=== PATIENT | male | born 1965 | race Two or more races ===

== ENCOUNTER 2017-01-03 12:34 | Inpatient (IN) | payer OTHER ==
[2017-01-03 17:56] VITALS: BMI 36.6
--- NOTE | 2017-01-03 19:41 | HP ---
CIWA Score - CIWA Score Nausea/Vomitin-Mild Nausea/No Vomiting Muscle Tremors: 5 Anxiety: 4-Mod. Anxious/Guarded Agitation: 4-Moderately Restless Paroxysmal Sweats: 2 Orientation: 0-Oriented Tacttile Disturbances: 0-None Auditory Disturbances: 0-None Visual Disturbances: 0-None Headache: 0-None Present CIWA-Ar Total Score: 16 Admission ROS BHS - HPI Chief Complaint: WITHDRAWAL SX Allergies/Adverse Reactions: Allergies Allergy/AdvReac Type Severity Reaction Status Date / Time No Known Allergies Allergy Verified 01/03/17 19:03 History of Present Illness: 51 YEARS OLD MALE WITH LONG HISTORY OF ALCOHOL COCAINE MARIJUAN DEPENDENCE DENIES MEDICAL ISSUE HAS ANXIETY IS ADMITTED TO DETOX LONGEST SOBRIETY 14 MONTHS Exam Limitations: No Limitations - Ebola screening Have you traveled outside of the country in the last 21 days: No Have you had contact with anyone from an Ebola affected area: No Have you been sick,other than usual withdrawal symptoms: No Do you have a fever: No - Review of Systems Constitutional: Chills, Changes in sleep, Weight Stable EENT: reports: Cataracts (RIGHT EYE), Hearing Loss (RIGHT EAR), Other Respiratory: reports: SOB with Exertion Cardiac: reports: No Symptoms Reported GI: reports: Diarrhea, Nausea, Poor Fluid Intake, Abdominal cramping : reports: No Symptoms Reported Musculoskeletal: reports: No Symptoms Reported Integumentary: reports: No Symptoms Reported Neuro: reports: Tremors Endocrine: reports: No Symptoms Reported Hematology: reports: No Symptoms Reported Psychiatric: reports: Judgement Intact, Orientated x3, Anxious Other Systems: Reviewed and Negative Patient History - Patient Medical History Hx Anemia: No Hx Asthma: No Hx Chronic Obstructive Pulmonary Disease (COPD): No Hx Cancer: No Hx Cardiac Disorders: No Hx Congestive Heart Failure: No Hx Hypertension: Yes Hx Hypercholesterolemia: No Hx Pacemaker: No HX Cerebrovascular Accident: No Hx Seizures: No Hx Dementia: No Hx Diabetes: No Hx Gastrointestinal Disorders: No Hx Liver Disease: No Hx Genitourinary Disorders: No Hx Sexually Transmitted Disorders: No Hx Renal Disease (ESRD): No Hx Thyroid Disease: No Hx Human Immunodeficiency Virus (HIV): No (08/04 last) Hx Hepatitis C: No Hx Depression: Yes Hx Suicide Attempt: No Hx Bipolar Disorder: No Hx Schizophrenia: No - Patient Surgical History Past Surgical History: No Hx Neurologic Surgery: No Hx Cataract Extraction: No Hx Cardiac Surgery: No Hx Lung Surgery: No Hx Breast Surgery: No Hx Breast Biopsy: No Hx Abdominal Surgery: No Hx Appendectomy: No Hx Cholecystectomy: No Hx Genitourinary Surgery: No Hx Orthopedic Surgery: No - PPD History Previous Implant?: Yes (+ ppd HISTORY) Documented Results: Positive w/o proof Implanted On Prior R Admission?: No PPD to be Administered?: No - Smoking Cessation Smoking history: Never smoked Have you smoked in the past 12 months: No Cigars Per Day: 0 Hx Chewing Tobacco Use: No Initiated information on smoking cessation: No - Substance & Tx. History Hx Alcohol Use: Yes Hx Substance Use: Yes Substance Use Type: Alcohol, Cocaine, Marijuana Hx Substance Use Treatment: Yes - Substances Abused Alcohol Route: Oral Frequency: Daily Amount used: 6 beers 1/2 pint vodka Age of first use: 13 Date of Last Use: 01/03/17 Crack Route: Smoking Frequency: 3-6 times per week Amount used: $50 Age of first use: 20 Date of Last Use: 12/31/16 Marijuana/Hashish Route: Smoking Frequency: Daily Amount used: $10 Age of first use: 13 Date of Last Use: 12/31/16 Family Disease History - Family Disease History Family Disease History: Respiratory: Mother (alcohol,asthma,), Other: Father (alcohol,), Mother, Brother (alcohol), Sister (alcohol) Admission Physical Exam S - Vital Signs Vital Signs: Vital Signs - 24 hr 01/03/17 17:55 Temperature 95.8 F L Pulse Rate 81 Respiratory 18 Rate Blood Pressure 159/103 - Physical General Appearance: Yes: Appropriately Dressed, Mild Distress, Obese, Tremorous , Irritable, Sweating, Anxious HEENTM: Yes: Hearing grossly Normal, Normal ENT Inspection, Normocephalic, Normal Voice Respiratory: Yes: Chest Non-Tender, Lungs Clear, Normal Breath Sounds, No Respiratory Distress, No Accessory Muscle Use Neck: Yes: Supple, Trachea in good position Breast: Yes: Breasts Symetrical Cardiology: Yes: Regular Rhythm, Regular Rate, S1, S2 Abdominal: Yes: Non Tender, Soft Genitourinary: Yes: Within Normal Limits Back: Yes: Normal Inspection Musculoskeletal: Yes: full range of Motion, Gait Steady Neurological: Yes: Fully Oriented, Alert, Motor Strength 5/5, Normal Response, Depressed Affect Integumentary: Yes: Warm Lymphatic: Yes: Within Normal Limits - Diagnostic (1) 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: Yes Status: Chronic (2) Alcohol dependence with uncomplicated withdrawal Current Visit: Yes Status: Acute (3) S/P cataract extraction and insertion of intraocular lens Current Visit: Yes Status: Resolved Qualifiers: Laterality: right Qualified Code(s): Z98.41 - Cataract extraction status, right eye; Z96.1 - Presence of intraocular lens (4) Hypertension Current Visit: Yes Status: Acute Qualifiers: Hypertension type: essential hypertension Qualified Code(s): I10 - Essential (primary) hypertension Comment: NO SALT DIET + AMLODIPINE 5 MG BID + CLONIDINE 0.1 MG Q6H PRN (5) Cocaine dependence, uncomplicated Current Visit: Yes Status: Chronic (6) Cannabis dependence, uncomplicated Current Visit: Yes Status: Chronic (7) Depression (emotion) Current Visit: Yes Status: Suspected Qualifiers: Depression Type: dysthymia Qualified Code(s): F34.1 - Dysthymic disorder (8) Positive PPD, treated Current Visit: Yes Status: Resolved Comment: CHEST X RAY PENDING Cleared for Admission [facility] - Detox or Rehab [facility] Level of Care: Medically Managed Detox Regimen/Protocol: Librium [facility] Breath Alcohol Content Breath Alcohol Content: 0 Urine Drug Screen - Results Drug Screen Negative: No Urine Drug Screen Results: THC-Marijuana, DINAH-Cocaine
[2017-01-03] MEDS ORDERED: MAGNESIUM HYDROX 2400MG/30ML ORAL SUSPENSION 30 ML CUP PO PRN (19:58)
[2017-01-03] MEDS ORDERED: IBUPROFEN 400 MG TABLET (FP) PO PRN (19:58)
[2017-01-03] MEDS ORDERED: LOPERAMIDE HCL 2 MG CAPSULE PO PRN (19:58)
[2017-01-03] MEDS ORDERED: P-EPHED 60MG/TRIPROLIDI 2.5MG TABLET PO PRN (19:58)
[2017-01-03] MEDS ORDERED: guaiFENesin/D-METHORPHAN HB 10 ML UNIT-DOSE CUPS PO PRN (19:58)
[2017-01-03] MEDS ORDERED: ACETAMINOPHEN 325 MG TABLET (FP) PO PRN (19:58)
[2017-01-03] MEDS ORDERED: MENTHOL/PHENOL 1 EACH UD MM PRN (19:58)
[2017-01-03] MEDS ORDERED: diphenhydrAMINE HCL 50 MG CAPSULE PO PRN (19:58)
[2017-01-03] MEDS ORDERED: MAGNESIUM CITRATE 300 ML BOTTLE PO PRN (19:58)
[2017-01-03] MEDS ORDERED: MAG HYDROX/AL HYDROX/SIMETH 30 ML UNIT-DOSE CUP PO PRN (19:58)
[2017-01-03] MEDS ORDERED: hydrOXYzine PAMOATE 50 MG CAPSULE (FP) PO PRN (19:58)
[2017-01-03] MEDS ORDERED: chlordiazePOXIDE HCL 25 MG CAPSULE PO PRN (19:58)
[2017-01-03] MEDS ORDERED: cloNIDine HCL 0.1 MG TABLET PO PRN (20:05)
[2017-01-03 21:29] LABS: URINE APPEARANCE CLEAR; URINE BILIRUBIN NEGATIVE (NEGATIVE); URINE COLOR YELLOW; URINE GLUCOSE (UA) NEGATIVE (NEGATIVE); URINE KETONE NEGATIVE (NEGATIVE); URINE LEUK ESTERASE NEGATIVE (NEGATIVE); URINE NITRITE NEGATIVE (NEGATIVE); URINE UROBILINOGEN 2.0 E.U/dl E.U./dl (0.2-1.0)
[2017-01-03] MEDS: THIAMINE HCL 100 MG TABLET (FP) PO SCH (22:37)
[2017-01-03] MEDS: chlordiazePOXIDE HCL 25 MG CAPSULE PO SCH (22:37)
[2017-01-03] MEDS: amLODIPine BESYLATE 5 MG TABLET (FP) PO SCH (22:37)
[2017-01-03 22:52] LABS: URINE BLOOD 2+ (NEGATIVE)
[2017-01-03 22:54] LABS: URINE BACTERIA RARE /hpf (NONE SEEN); URINE HYALINE CAST 5 /lpf; URINE MUCUS MANY; URINE PROTEIN 2+ (NEGATIVE); URINE RBC 1 /hpf (0-3); URINE WBC 1 /hpf (3-5)
[2017-01-03 22:55] LABS: CALCIUM OXALATE CRYSTALS FEW /hpf (NONE SEEN)
[2017-01-04] MEDS: chlordiazePOXIDE HCL 25 MG CAPSULE PO SCH ×4 (06:01→22:17)
[2017-01-04 10:02] LABS: GLUCOSE,RANDOM 108 mg/dL (74-106); SGOT/AST 18 U/L (15-37); SGPT/ALT 37 U/L (12-78)
[2017-01-04 10:04] LABS: MCH 27.3 pg (25.7-33.7); MEAN CELL VOLUME 85.3 fl (80-96); MEAN PLT VOLUME 10.4 fl (7.5-11.1); PLATELET COUNT 191 K/MM3 (134-434); RDW 14.3 % (11.9-15.9)
[2017-01-04 10:07] LABS: ALBUMIN 4.3 g/dl (3.4-5.0); ALK PHOS 65 U/L (45-117); ANION GAP 8 (8-16); BILIRUBIN,TOTAL 0.8 mg/dL (0.2-1.0); CALCIUM 9.2 mg/dL (8.5-10.1); CO2 27 mmol/L (21-32); TOT PROT 7.2 g/dl (6.4-8.2)
--- NOTE | 2017-01-04 10:19 | PN ---
S CIWA - CIWA Score Nausea/Vomitin Muscle Tremors: 3 Anxiety: 3 Agitation: 3 Paroxysmal Sweats: 1-Minimal Palms Moist Orientation: 0-Oriented Tacttile Disturbances: 1-Very Mild Itch/Numbness Auditory Disturbances: 1-Very Mild Visual Disturbances: 1-Very Mild Sensitivity Headache: 2-Mild CIWA-Ar Total Score: 18 S Progress Note (SOAP) Subjective: ALERT,IRRITABLE,ANXIOUS,INTERRUPTED SLEEP,TREMOR Objective: 01/04/17 10:17 Vital Signs Temperature 96.8 F L 01/04/17 09:50 Pulse Rate 65 01/04/17 09:50 Respiratory Rate 18 01/04/17 09:50 Blood Pressure 125/73 01/04/17 09:50 O2 Sat by Pulse Oximetry (%) EKG NSR,NORMAL ECG Laboratory Last Values WBC 6.0 K/mm3 (4.0-10.0) 01/04/17 06:00 RBC 5.34 M/mm3 (4.00-5.60) 01/04/17 06:00 Hgb 14.6 GM/dL (11.7-16.9) 01/04/17 06:00 Hct 45.6 % (35.4-49) 01/04/17 06:00 MCV 85.3 fl (80-96) 01/04/17 06:00 MCHC 32.0 g/dl (32.0-35.9) 01/04/17 06:00 RDW 14.3 % (11.9-15.9) 01/04/17 06:00 Plt Count 191 K/MM3 (134-434) 01/04/17 06:00 MPV 10.4 fl (7.5-11.1) 01/04/17 06:00 Sodium 138 mmol/L (136-145) 01/04/17 06:00 Potassium 3.7 mmol/L (3.5-5.1) 01/04/17 06:00 Chloride 103 mmol/L (98-107) 01/04/17 06:00 Carbon Dioxide 27 mmol/L (21-32) 01/04/17 06:00 Anion Gap 8 (8-16) 01/04/17 06:00 BUN 14 mg/dL (7-18) D 01/04/17 06:00 Creatinine 1.0 mg/dL (0.7-1.3) 01/04/17 06:00 Creat Clearance w eGFR > 60 (>60) 01/04/17 06:00 Random Glucose 108 mg/dL (74-106) H 01/04/17 06:00 Calcium 9.2 mg/dL (8.5-10.1) 01/04/17 06:00 Total Bilirubin 0.8 mg/dL (0.2-1.0) D 01/04/17 06:00 AST 18 U/L (15-37) D 01/04/17 06:00 ALT 37 U/L (12-78) D 01/04/17 06:00 Alkaline Phosphatase 65 U/L (45-117) 01/04/17 06:00 Total Protein 7.2 g/dl (6.4-8.2) 01/04/17 06:00 Albumin 4.3 g/dl (3.4-5.0) D 01/04/17 06:00 Urine Color Yellow 01/03/17 21:25 Urine Appearance Clear 01/03/17 21:25 Urine pH 5.0 (5.0-8.0) 01/03/17 21:25 Ur Specific [place] 1.018 (1.001-1.035) 01/03/17 21:25 Urine Protein 2+ (NEGATIVE) H 01/03/17 21:25 Urine Glucose (UA) Negative (NEGATIVE) 01/03/17 21:25 Urine Ketones Negative (NEGATIVE) 01/03/17 21:25 Urine Blood 2+ (NEGATIVE) H 01/03/17 21:25 Urine Nitrite Negative (NEGATIVE) 01/03/17 21:25 Urine Bilirubin Negative (NEGATIVE) 01/03/17 21:25 Urine Urobilinogen 2.0 e.u/dl E.U./dl (0.2-1.0) 01/03/17 21:25 Ur Leukocyte Esterase Negative (NEGATIVE) 01/03/17 21:25 Urine RBC 1 /hpf (0-3) 01/03/17 21:25 Urine WBC 1 /hpf (3-5) 01/03/17 21:25 Ur Epithelial Cells Rare /hpf (FEW) 01/03/17 21:25 Calcium Oxalate Crystal Few /hpf (NONE SEEN) 01/03/17 21:25 Urine Bacteria Rare /hpf (NONE SEEN) 01/03/17 21:25 Hyaline Casts 5 /lpf 01/03/17 21:25 Urine Mucus Many 01/03/17 21:25 Assessment: 01/04/17 10:18 WITHDRAWAL SYMPTOM Plan: CONTINUE DETOX
[2017-01-04 10:27] LABS: HIV 1 & 2 AB NEGATIVE; HIV 1 AGp24 NEGATIVE
[2017-01-04] MEDS: PRENATAL VITAMINS W/ FOLIC ACID TABLET (FP) PO SCH (10:34)
[2017-01-04] MEDS: amLODIPine BESYLATE 5 MG TABLET (FP) PO SCH ×2 (10:34→22:17)
--- NOTE | 2017-01-04 11:18 | CONSULT ---
[facility] Psychiatric Consult - Data Date of interview: 01/04/17 Admission source: [facility] Identifying data: This is 51 years old male with psychiatric hospitalization history on about 10 years ago, intoxicated with: Alcohol, Cocaine and Cannabis Substance Abuse History: - Smoking Cessation. Smoking history: Never smoked. Have you smoked in the past 12 months: No. Cigars Per Day: 0. Hx Chewing Tobacco Use: No. Initiated information on smoking cessation: No. - Substance & Tx. History. Hx Alcohol Use: Yes. Hx Substance Use: Yes. Substance Use Type : Alcohol, Cocaine, Marijuana. Hx Substance Use Treatment: Yes. - Substances Abused. Alcohol. Route: Oral. Frequency: Daily. Amount used: 6 beers 1/2 pint vodka. Age of first use: 13. Date of Last Use: 01/03/17. Crack. Route: Smoking. Frequency: 3-6 times per week. Amount used: $50. Age of first use: 20. Date of Last Use: 12/31/16. Marijuana/Hashish. Route: Smoking. Frequency: Daily. Amount used: $10. Age of first use: 13. Date of Last Use: 12/31/16 Medical History: HTN, Right ear deafness, Weight loss, Syncope, Obesity Psychiatric History: Nelson reports history of depression and anxiety, reports taking prior mtop admission: No medications Physical/Sexual Abuse/Trauma History: Denies Additional Comment: Observation. Detox Unit Care Protocol Mental Status Exam - Mental Status Exam Alert and Oriented to: Person Cognitive Function: Fair Patient Appearance: Unkempt Mood: Sad Affect: Flat Patient Behavior: Sedated Speech Pattern: Appropriate Voice Loudness: Mildly Soft/Quiet Thought Process: Goal Oriented Thought Disorder: Being Controlled Hallucinations: Denies Suicidal Ideation: Denies Homicidal Ideation: Denies Insight/Judgement: Fair Sleep: Difficulty falling asleep Appetite: Weight gain Muscle strength/Tone: Mild Hypotonicity Gait/Station: Shuffling Additional Comments: Observation. Detox Unit Care Protocol Psychiatric Findings - Problem List ([place] 1, 2,3) (1) Alcohol dependence with uncomplicated withdrawal Current Visit: Yes Status: Acute (2) Cannabis dependence, uncomplicated Current Visit: Yes Status: Chronic (3) Cocaine dependence, uncomplicated Current Visit: Yes Status: Chronic (4) Alcohol dependence Current Visit: No Status: Acute (5) Cannabis dependence Current Visit: No Status: Acute (6) Cocaine dependence Current Visit: No Status: Acute (7) Drug-induced mood disorder Current Visit: Yes Status: Acute - Initial Treatment Plan Initial Treatment Plan: Observation. Detox Unit Care Protocol
--- NOTE | 2017-01-04 15:29 | EKG ---
Test Reason : Blood Pressure : / mmHG Vent. Rate : 073 BPM Atrial Rate : 073 BPM P-R Int : 136 ms QRS Dur : 084 ms QT Int : 412 ms P-R-T Axes : 049 012 004 degrees QTc Int : 453 ms NORMAL SINUS RHYTHM NORMAL ECG NO PREVIOUS ECGS AVAILABLE Confirmed by IFEOMA MCKENNA MD ([id number]) on 01/04/2017 3:29:01 PM Referred By: Confirmed By:IFEOMA MCKENNA MD
[2017-01-04] MEDS: THIAMINE HCL 100 MG TABLET (FP) PO SCH (22:16)
[2017-01-05] MEDS: chlordiazePOXIDE HCL 25 MG CAPSULE PO SCH ×3 (05:29→17:37)
[2017-01-05] MEDS: PRENATAL VITAMINS W/ FOLIC ACID TABLET (FP) PO SCH (10:42)
[2017-01-05] MEDS: amLODIPine BESYLATE 5 MG TABLET (FP) PO SCH ×2 (10:42→22:30)
--- NOTE | 2017-01-05 15:19 | PN ---
[facility] CIWA - CIWA Score Nausea/Vomitin-No Nausea/No Vomiting Muscle Tremors: 3 Anxiety: 2 Agitation: 3 Paroxysmal Sweats: 3 Orientation: 0-Oriented Tacttile Disturbances: 0-None Auditory Disturbances: 2-Mild Harshness/Frighten Visual Disturbances: 2-Mild Sensitivity Headache: 0-None Present CIWA-Ar Total Score: 15 S Progress Note (SOAP) Subjective: Interrupted Sleep, Chills, Tremors, Sweating. Objective: PT. A & O X 3, OBSERVED AMBULATING ON UNIT. 01/05/17 15:17 Vital Signs Temperature 98.1 F 01/05/17 14:24 Pulse Rate 93 H 01/05/17 14:24 Respiratory Rate 20 01/05/17 14:24 Blood Pressure 136/73 01/05/17 14:24 O2 Sat by Pulse Oximetry (%) Laboratory Last Values WBC 6.0 K/mm3 (4.0-10.0) 01/04/17 06:00 RBC 5.34 M/mm3 (4.00-5.60) 01/04/17 06:00 Hgb 14.6 GM/dL (11.7-16.9) 01/04/17 06:00 Hct 45.6 % (35.4-49) 01/04/17 06:00 MCV 85.3 fl (80-96) 01/04/17 06:00 MCHC 32.0 g/dl (32.0-35.9) 01/04/17 06:00 RDW 14.3 % (11.9-15.9) 01/04/17 06:00 Plt Count 191 K/MM3 (134-434) 01/04/17 06:00 MPV 10.4 fl (7.5-11.1) 01/04/17 06:00 Sodium 138 mmol/L (136-145) 01/04/17 06:00 Potassium 3.7 mmol/L (3.5-5.1) 01/04/17 06:00 Chloride 103 mmol/L (98-107) 01/04/17 06:00 Carbon Dioxide 27 mmol/L (21-32) 01/04/17 06:00 Anion Gap 8 (8-16) 01/04/17 06:00 BUN 14 mg/dL (7-18) D 01/04/17 06:00 Creatinine 1.0 mg/dL (0.7-1.3) 01/04/17 06:00 Creat Clearance w eGFR > 60 (>60) 01/04/17 06:00 Random Glucose 108 mg/dL (74-106) H 01/04/17 06:00 Calcium 9.2 mg/dL (8.5-10.1) 01/04/17 06:00 Total Bilirubin 0.8 mg/dL (0.2-1.0) D 01/04/17 06:00 AST 18 U/L (15-37) D 01/04/17 06:00 ALT 37 U/L (12-78) D 01/04/17 06:00 Alkaline Phosphatase 65 U/L (45-117) 01/04/17 06:00 Total Protein 7.2 g/dl (6.4-8.2) 01/04/17 06:00 Albumin 4.3 g/dl (3.4-5.0) D 01/04/17 06:00 Urine Color Yellow 01/03/17 21:25 Urine Appearance Clear 01/03/17 21:25 Urine pH 5.0 (5.0-8.0) 01/03/17 21:25 Ur Specific [place] 1.018 (1.001-1.035) 01/03/17 21:25 Urine Protein 2+ (NEGATIVE) H 01/03/17 21:25 Urine Glucose (UA) Negative (NEGATIVE) 01/03/17 21:25 Urine Ketones Negative (NEGATIVE) 01/03/17 21:25 Urine Blood 2+ (NEGATIVE) H 01/03/17 21:25 Urine Nitrite Negative (NEGATIVE) 01/03/17 21:25 Urine Bilirubin Negative (NEGATIVE) 01/03/17 21:25 Urine Urobilinogen 2.0 e.u/dl E.U./dl (0.2-1.0) 01/03/17 21:25 Ur Leukocyte Esterase Negative (NEGATIVE) 01/03/17 21:25 Urine RBC 1 /hpf (0-3) 01/03/17 21:25 Urine WBC 1 /hpf (3-5) 01/03/17 21:25 Ur Epithelial Cells Rare /hpf (FEW) 01/03/17 21:25 Calcium Oxalate Crystal Few /hpf (NONE SEEN) 01/03/17 21:25 Urine Bacteria Rare /hpf (NONE SEEN) 01/03/17 21:25 Hyaline Casts 5 /lpf 01/03/17 21:25 Urine Mucus Many 01/03/17 21:25 RPR Titer Nonreactive (NONREACTIVE) 01/04/17 06:00 Hepatitis C Antibody <0.1 s/co ratio (0.0-0.9) 01/03/17 06:00 HIV 1&2 Antibody Screen Negative 01/03/17 06:00 HIV P24 Antigen Negative 01/03/17 06:00 LABS NOTED. Assessment: 01/05/17 15:18 WITHDRAWAL SYMPTOMS. Plan: CONTINUE DETOX.
[2017-01-05] MEDS: THIAMINE HCL 100 MG TABLET (FP) PO SCH (22:30)
[2017-01-05] MEDS: chlordiazePOXIDE 5 MG CAPSULE PO SCH (22:30)
[2017-01-06] MEDS: chlordiazePOXIDE 5 MG CAPSULE PO SCH ×3 (05:45→17:58)
[2017-01-06] MEDS: amLODIPine BESYLATE 5 MG TABLET (FP) PO SCH ×2 (10:32→23:07)
[2017-01-06] MEDS: PRENATAL VITAMINS W/ FOLIC ACID TABLET (FP) PO SCH (10:32)
--- NOTE | 2017-01-06 14:45 | PN ---
S Progress Note (SOAP) Subjective: Interrupted sleep only symptoms reported by pt. today. Objective: PT. A & O X 3. 01/06/17 14:44 Vital Signs Temperature 96 F L 01/06/17 09:40 Pulse Rate 72 01/06/17 09:40 Respiratory Rate 18 01/06/17 09:40 Blood Pressure 132/85 01/06/17 09:40 O2 Sat by Pulse Oximetry (%) Laboratory Last Values WBC 6.0 K/mm3 (4.0-10.0) 01/04/17 06:00 RBC 5.34 M/mm3 (4.00-5.60) 01/04/17 06:00 Hgb 14.6 GM/dL (11.7-16.9) 01/04/17 06:00 Hct 45.6 % (35.4-49) 01/04/17 06:00 MCV 85.3 fl (80-96) 01/04/17 06:00 MCHC 32.0 g/dl (32.0-35.9) 01/04/17 06:00 RDW 14.3 % (11.9-15.9) 01/04/17 06:00 Plt Count 191 K/MM3 (134-434) 01/04/17 06:00 MPV 10.4 fl (7.5-11.1) 01/04/17 06:00 Sodium 138 mmol/L (136-145) 01/04/17 06:00 Potassium 3.7 mmol/L (3.5-5.1) 01/04/17 06:00 Chloride 103 mmol/L (98-107) 01/04/17 06:00 Carbon Dioxide 27 mmol/L (21-32) 01/04/17 06:00 Anion Gap 8 (8-16) 01/04/17 06:00 BUN 14 mg/dL (7-18) D 01/04/17 06:00 Creatinine 1.0 mg/dL (0.7-1.3) 01/04/17 06:00 Creat Clearance w eGFR > 60 (>60) 01/04/17 06:00 Random Glucose 108 mg/dL (74-106) H 01/04/17 06:00 Calcium 9.2 mg/dL (8.5-10.1) 01/04/17 06:00 Total Bilirubin 0.8 mg/dL (0.2-1.0) D 01/04/17 06:00 AST 18 U/L (15-37) D 01/04/17 06:00 ALT 37 U/L (12-78) D 01/04/17 06:00 Alkaline Phosphatase 65 U/L (45-117) 01/04/17 06:00 Total Protein 7.2 g/dl (6.4-8.2) 01/04/17 06:00 Albumin 4.3 g/dl (3.4-5.0) D 01/04/17 06:00 Urine Color Yellow 01/03/17 21:25 Urine Appearance Clear 01/03/17 21:25 Urine pH 5.0 (5.0-8.0) 01/03/17 21:25 Ur Specific [place] 1.018 (1.001-1.035) 01/03/17 21:25 Urine Protein 2+ (NEGATIVE) H 01/03/17 21:25 Urine Glucose (UA) Negative (NEGATIVE) 01/03/17 21:25 Urine Ketones Negative (NEGATIVE) 01/03/17 21:25 Urine Blood 2+ (NEGATIVE) H 01/03/17 21:25 Urine Nitrite Negative (NEGATIVE) 01/03/17 21:25 Urine Bilirubin Negative (NEGATIVE) 01/03/17 21:25 Urine Urobilinogen 2.0 e.u/dl E.U./dl (0.2-1.0) 01/03/17 21:25 Ur Leukocyte Esterase Negative (NEGATIVE) 01/03/17 21:25 Urine RBC 1 /hpf (0-3) 01/03/17 21:25 Urine WBC 1 /hpf (3-5) 01/03/17 21:25 Ur Epithelial Cells Rare /hpf (FEW) 01/03/17 21:25 Calcium Oxalate Crystal Few /hpf (NONE SEEN) 01/03/17 21:25 Urine Bacteria Rare /hpf (NONE SEEN) 01/03/17 21:25 Hyaline Casts 5 /lpf 01/03/17 21:25 Urine Mucus Many 01/03/17 21:25 RPR Titer Nonreactive (NONREACTIVE) 01/04/17 06:00 Hepatitis C Antibody <0.1 s/co ratio (0.0-0.9) 01/03/17 06:00 HIV 1&2 Antibody Screen Negative 01/03/17 06:00 HIV P24 Antigen Negative 01/03/17 06:00 LABS NOTED. Assessment: 01/06/17 14:45 WITHDRAWAL SYMPTOMS. Plan: CONTINUE DETOX. ADVISED PATIENT TO FOLLOW-UP WITH HOTEL CLERK / REHAB MEDICAL PROVIDER AFTER DISCHARGE FROM DETOX FOR GENERAL MEDICAL ASSESSMENT AND FOR ABNORMAL ADMISSION LAB VALUES.
[2017-01-06 21:50] VITALS: TEMP 96.1
[2017-01-06] MEDS: THIAMINE HCL 100 MG TABLET (FP) PO SCH (23:07)
[2017-01-06] MEDS: chlordiazePOXIDE HCL 10 MG CAPSULE PO SCH (23:08)
[2017-01-07] MEDS: chlordiazePOXIDE HCL 10 MG CAPSULE PO SCH (05:38)
[2017-01-07 06:32] VITALS: BP 137/86; PULSE 65
--- NOTE | 2017-01-07 10:59 | DS ---
[facility] Detox Discharge Summary Admission Date: 01/03/17 Discharge Date: 01/07/17 - History Present History: Alcohol Dependence, Cannabis Dependence, Cocaine Dependence Additional Comments: Hypertension +PPD - Physical Exam Results Vital Signs: Vital Signs Temperature 96.1 F L 01/07/17 06:31 Pulse Rate 65 01/07/17 06:31 Respiratory Rate 18 01/07/17 06:31 Blood Pressure 137/86 01/07/17 06:31 O2 Sat by Pulse Oximetry (%) Laboratory Tests 01/03/17 01/03/17 01/03/17 06:00 06:00 21:25 WBC RBC Hgb Hct MCV MCHC RDW Plt Count MPV Sodium Potassium Chloride Carbon Dioxide Anion Gap BUN Creatinine Creat Clearance w eGFR Random Glucose Calcium Total Bilirubin AST ALT Alkaline Phosphatase Total Protein Albumin Urine Color Yellow Urine Appearance Clear Urine pH 5.0 Ur Specific [place] 1.018 Urine Protein 2+ H Urine Glucose (UA) Negative Urine Ketones Negative Urine Blood 2+ H Urine Nitrite Negative Urine Bilirubin Negative Urine Urobilinogen 2.0 e.u/dl Ur Leukocyte Esterase Negative Urine RBC 1 Urine WBC 1 Ur Epithelial Cells Rare Calcium Oxalate Crystal Few Urine Bacteria Rare Hyaline Casts 5 Urine Mucus Many RPR Titer Hepatitis C Antibody <0.1 HIV 1&2 Antibody Screen Negative HIV P24 Antigen Negative 01/04/17 01/04/17 01/04/17 06:00 06:00 06:00 WBC 6.0 RBC 5.34 Hgb 14.6 Hct 45.6 MCV 85.3 MCHC 32.0 RDW 14.3 Plt Count 191 MPV 10.4 Sodium 138 Potassium 3.7 Chloride 103 Carbon Dioxide 27 Anion Gap 8 BUN 14 D Creatinine 1.0 Creat Clearance w eGFR > 60 Random Glucose 108 H Calcium 9.2 Total Bilirubin 0.8 D AST 18 D ALT 37 D Alkaline Phosphatase 65 Total Protein 7.2 Albumin 4.3 D Urine Color Urine Appearance Urine pH Ur Specific [place] Urine Protein Urine Glucose (UA) Urine Ketones Urine Blood Urine Nitrite Urine Bilirubin Urine Urobilinogen Ur Leukocyte Esterase Urine RBC Urine WBC Ur Epithelial Cells Calcium Oxalate Crystal Urine Bacteria Hyaline Casts Urine Mucus RPR Titer Nonreactive Hepatitis C Antibody HIV 1&2 Antibody Screen HIV P24 Antigen Vitals and Labs Noted - Treatment Hospital Course: Detox Protocol Followed, Detoxed Safely, Responded well, Discharged Condition Good Patient has Accepted a Rehab Referral to: Outpatient [facility] - Medication Discharge Medications: Ambulatory Orders NK [No Known Home Medication] 11/11/14 - Diagnosis (1) Alcohol dependence with uncomplicated withdrawal Status: Acute (2) Cannabis dependence Status: Acute (3) Cocaine dependence Status: Acute (4) Drug-induced mood disorder Status: Acute (5) Hypertension Status: Acute Qualifiers: Hypertension type: essential hypertension Qualified Code(s): I10 - Essential (primary) hypertension (6) Cannabis dependence, uncomplicated Status: Chronic (7) Cocaine dependence, uncomplicated Status: Chronic - AMA Did Patient Leave Against Medical Advice: No
== END 2017-01-07 09:34 | disposition home or self-care (01) | DRG 774 ==
LOC: YASAS 12:34 → Y3N 19:16
PROVIDERS: ADMIT Internal Medicine; ATTEND Internal Medicine
PROC: HZ2ZZZZ Detoxification Services for Substance Abuse Treatment (ICD-10-PCS; principal; 2017-01-03)
DX: F10.230 Alcohol dependence with withdrawal, uncomplicated (principal); F14.20 Cocaine dependence, uncomplicated; F12.20 Cannabis dependence, uncomplicated; F19.24 Other psychoactive substance dependence with psychoactive substance-induced mood disorder; F34.1 Dysthymic disorder; I10 Essential (primary) hypertension; H91.91 Unspecified hearing loss, right ear; R76.11 Nonspecific reaction to tuberculin skin test without active tuberculosis; E66.9 Obesity, unspecified; Z68.36 Body mass index [BMI] 36.0-36.9, adult; Z98.41 Cataract extraction status, right eye; Z96.1 Presence of intraocular lens
CPT/HCPCS: 36415; 71020-TC; 80053; 81003; 81015; 85027; 86593; 87389; 93005; 93010

== ENCOUNTER 2018-08-30 11:57 | Inpatient (IN) | payer OTHER ==
[2018-08-30 12:38] VITALS: BMI 36.6
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
[2018-08-30] MEDS ORDERED: MAGNESIUM CITRATE 300 ML BOTTLE PO PRN (20:01)
[2018-08-30] MEDS ORDERED: guaiFENesin/D-METHORPHAN HB 10 ML UNIT-DOSE CUPS PO PRN (20:01)
[2018-08-30] MEDS ORDERED: IBUPROFEN 400 MG TABLET (FP) PO PRN (20:01)
[2018-08-30] MEDS ORDERED: P-EPHED 60MG/TRIPROLIDI 2.5MG TABLET PO PRN (20:01)
[2018-08-30] MEDS ORDERED: MENTHOL/PHENOL 1 EACH UD MM PRN (20:01)
[2018-08-30] MEDS ORDERED: diazePAM 5 MG TABLET PO PRN (20:01)
[2018-08-30] MEDS ORDERED: hydrOXYzine PAMOATE 25 MG CAPSULE (FP) PO PRN (20:01)
[2018-08-30] MEDS ORDERED: ACETAMINOPHEN 325 MG TABLET (FP) PO PRN (20:01)
[2018-08-30] MEDS ORDERED: MAGNESIUM HYDROX 2400MG/30ML ORAL SUSPENSION 30 ML CUP PO PRN (20:01)
[2018-08-30] MEDS ORDERED: MAG HYDROX/AL HYDROX/SIMETH 30 ML UNIT-DOSE CUP PO PRN (20:01)
[2018-08-30 23:24] LABS: URINE APPEARANCE CLOUDY; URINE BILIRUBIN NEGATIVE (<2.0 mg/dL); URINE COLOR LTYELLOW; URINE GLUCOSE (UA) NEGATIVE (NEGATIVE); URINE KETONE NEGATIVE (NEGATIVE); URINE LEUK ESTERASE NEGATIVE (NEGATIVE); URINE NITRITE NEGATIVE (NEGATIVE); URINE PROTEIN NEGATIVE (NEGATIVE); URINE UROBILINOGEN NEGATIVE mg/dL (0.2-1.0)
[2018-08-30] MEDS: cloNIDine HCL 0.1 MG TABLET PO PRN (23:59)
[2018-08-30] MEDS: diazePAM 5 MG TABLET PO SCH (23:59)
[2018-08-31] MEDS: THIAMINE HCL 100 MG TABLET (FP) PO SCH ×2 (00:04→22:26)
[2018-08-31] MEDS: diazePAM 5 MG TABLET PO SCH ×3 (06:11→22:26)
[2018-08-31] MEDS: PRENATAL VITAMINS W/ FOLIC ACID TABLET (FP) PO SCH (10:30)
[2018-08-31 11:23] LABS: HEMATOCRIT 38.5 % (35.4-49); HEMOGLOBIN 12.1 GM/dL (11.7-16.9); MCHC 31.4 g/dl (32.0-35.9); MEAN CELL VOLUME 86.1 fl (80-96); MEAN PLT VOLUME 9.2 fl (7.5-11.1); PLATELET COUNT 185 K/MM3 (134-434); RBC 4.47 M/mm3 (4.00-5.60); RDW 14.1 % (11.9-15.9); WHITE BLOOD COUNT 5.9 K/mm3 (4.0-10.0)
[2018-08-31 11:28] LABS: ALBUMIN 3.3 g/dl (3.4-5.0); ALK PHOS 56 U/L (45-117); ANION GAP 7 MMOL/L (8-16); BILIRUBIN,TOTAL 0.6 mg/dL (0.2-1); BLOOD UREA NITROGEN 16 mg/dL (7-18); CALCIUM 8.2 mg/dL (8.5-10.1); CHLORIDE 108 mmol/L (98-107); CO2 27 mmol/L (21-32); CREATININE 1.2 mg/dL (0.55-1.3); GLUCOSE,RANDOM 104 mg/dL (74-106); POTASSIUM 3.9 mmol/L (3.5-5.1); SGOT/AST 28 U/L (15-37); SGPT/ALT 40 U/L (13-61); SODIUM 142 mmol/L (136-145)
--- NOTE | 2018-08-31 11:53 | PN ---
S CIWA - CIWA Score Nausea/Vomitin-Mild Nausea/No Vomiting Muscle Tremors: 1-None Visible, but [place] Anxiety: 2 Agitation: 1-Slight > Activity Paroxysmal Sweats: 1-Minimal Palms Moist Orientation: 0-Oriented Tacttile Disturbances: 2-Mild Itch/Numbness/Burn Auditory Disturbances: 0-None Visual Disturbances: 0-None Headache: 0-None Present CIWA-Ar Total Score: 8 BHS Progress Note (SOAP) Subjective: PATIENT C/O MILD ITCHINESS, ANXIETY AND NAUSEA. Objective: 08/31/18 11:50 Vital Signs Temperature 98.8 F 08/31/18 09:48 Pulse Rate 85 08/31/18 09:48 Respiratory Rate 20 08/31/18 09:48 Blood Pressure 149/85 08/31/18 09:48 O2 Sat by Pulse Oximetry (%) Laboratory Tests 08/30/18 08/31/18 08/31/18 23:10 07:30 07:30 WBC 5.9 RBC 4.47 Hgb 12.1 Hct 38.5 D MCV 86.1 MCH 27.0 MCHC 31.4 L RDW 14.1 Plt Count 185 MPV 9.2 D Sodium 142 Potassium 3.9 Chloride 108 H Carbon Dioxide 27 Anion Gap 7 L BUN 16 Creatinine 1.2 Creat Clearance w eGFR > 60 Random Glucose 104 Calcium 8.2 L Total Bilirubin 0.6 AST 28 ALT 40 Alkaline Phosphatase 56 Total Protein 6.0 L Albumin 3.3 L Urine Color Ltyellow Urine Appearance Cloudy Urine pH 5.0 Ur Specific [place] 1.028 Urine Protein Negative Urine Glucose (UA) Negative Urine Ketones Negative Urine Blood Negative Urine Nitrite Negative Urine Bilirubin Negative Urine Urobilinogen Negative Ur Leukocyte Esterase Negative PE: SKIN WARM, MILD MOISTURE TO HANDS AND FACE CAR S1S2 RESP CTA BL EXT FULL ROM, MILD TREMORS FELT AMB AD EL ALERT AND ORIENTED X 3 Assessment: 08/31/18 11:52 WITHDRAWAL SX Plan: CONTINUE DETOX ORDERED ENCOURAGE ORAL FLUIDS CONTINUE TO MONITOR CLINICALLY
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
[2018-08-31] MEDS: MELATONIN 5 MG TABLETS PO PRN (22:26)
[2018-08-31] MEDS: cloNIDine HCL 0.1 MG TABLET PO PRN (22:26)
[2018-09-01] MEDS: PRENATAL VITAMINS W/ FOLIC ACID TABLET (FP) PO SCH (10:51)
[2018-09-01] MEDS: diazePAM 5 MG TABLET PO SCH ×2 (10:51→22:14)
--- NOTE | 2018-09-01 12:38 | PN ---
[facility] CIWA - CIWA Score Nausea/Vomitin-No Nausea/No Vomiting Muscle Tremors: 3 Anxiety: 2 Agitation: 1-Slight > Activity Paroxysmal Sweats: 1-Minimal Palms Moist Orientation: 0-Oriented Tacttile Disturbances: 1-Very Mild Itch/Numbness Auditory Disturbances: 1-Very Mild Visual Disturbances: 0-None Headache: 1-Very Mild CIWA-Ar Total Score: 10 S Progress Note (SOAP) Subjective: gi distress tremor sweat trouble sleep at niight Objective: 09/01/18 12:38 Vital Signs Temperature 97.9 F 09/01/18 09:35 Pulse Rate 65 09/01/18 09:35 Respiratory Rate 16 09/01/18 09:35 Blood Pressure 137/91 09/01/18 09:35 O2 Sat by Pulse Oximetry (%) Laboratory Last Values WBC 5.9 K/mm3 (4.0-10.0) 08/31/18 07:30 RBC 4.47 M/mm3 (4.00-5.60) 08/31/18 07:30 Hgb 12.1 GM/dL (11.7-16.9) 08/31/18 07:30 Hct 38.5 % (35.4-49) D 08/31/18 07:30 MCV 86.1 fl (80-96) 08/31/18 07:30 MCH 27.0 pg (25.7-33.7) 08/31/18 07:30 MCHC 31.4 g/dl (32.0-35.9) L 08/31/18 07:30 RDW 14.1 % (11.9-15.9) 08/31/18 07:30 Plt Count 185 K/MM3 (134-434) 08/31/18 07:30 MPV 9.2 fl (7.5-11.1) D 08/31/18 07:30 Sodium 142 mmol/L (136-145) 08/31/18 07:30 Potassium 3.9 mmol/L (3.5-5.1) 08/31/18 07:30 Chloride 108 mmol/L (98-107) H 08/31/18 07:30 Carbon Dioxide 27 mmol/L (21-32) 08/31/18 07:30 Anion Gap 7 MMOL/L (8-16) L 08/31/18 07:30 BUN 16 mg/dL (7-18) 08/31/18 07:30 Creatinine 1.2 mg/dL (0.55-1.3) 08/31/18 07:30 Creat Clearance w eGFR > 60 (>60) 08/31/18 07:30 Random Glucose 104 mg/dL (74-106) 08/31/18 07:30 Calcium 8.2 mg/dL (8.5-10.1) L 08/31/18 07:30 Total Bilirubin 0.6 mg/dL (0.2-1) 08/31/18 07:30 AST 28 U/L (15-37) 08/31/18 07:30 ALT 40 U/L (13-61) 08/31/18 07:30 Alkaline Phosphatase 56 U/L (45-117) 08/31/18 07:30 Total Protein 6.0 g/dl (6.4-8.2) L 08/31/18 07:30 Albumin 3.3 g/dl (3.4-5.0) L 08/31/18 07:30 Urine Color Ltyellow 08/30/18 23:10 Urine Appearance Cloudy 08/30/18 23:10 Urine pH 5.0 (5.0-8.0) 08/30/18 23:10 Ur Specific [place] 1.028 (1.010-1.035) 08/30/18 23:10 Urine Protein Negative (NEGATIVE) 08/30/18 23:10 Urine Glucose (UA) Negative (NEGATIVE) 08/30/18 23:10 Urine Ketones Negative (NEGATIVE) 08/30/18 23:10 Urine Blood Negative (NEGATIVE) 08/30/18 23:10 Urine Nitrite Negative (NEGATIVE) 08/30/18 23:10 Urine Bilirubin Negative (<2.0 mg/dL) 08/30/18 23:10 Urine Urobilinogen Negative mg/dL (0.2-1.0) 08/30/18 23:10 Ur Leukocyte Esterase Negative (NEGATIVE) 08/30/18 23:10 RPR Titer Nonreactive (NONREACTIVE) 08/31/18 07:30 HIV 1&2 Antibody Screen Negative 08/31/18 07:30 HIV P24 Antigen Negative 08/31/18 07:30 lab noted calcium rich food Assessment: 09/01/18 12:39 withdrawal sx Plan: continue detox
[2018-09-01] MEDS: cloNIDine HCL 0.1 MG TABLET PO PRN (22:14)
[2018-09-01] MEDS: THIAMINE HCL 100 MG TABLET (FP) PO SCH (22:14)
[2018-09-02] MEDS: diazePAM 5 MG TABLET PO SCH ×2 (10:11→22:16)
[2018-09-02] MEDS: PRENATAL VITAMINS W/ FOLIC ACID TABLET (FP) PO SCH (10:11)
--- NOTE | 2018-09-02 10:41 | PN ---
BHS Progress Note (SOAP) Subjective: feeling better no tremor no gi distress less sweat sleep better at night discuss aftercare with staff Objective: 09/02/18 10:46 Vital Signs Temperature 96.8 F L 09/02/18 09:30 Pulse Rate 65 09/02/18 09:30 Respiratory Rate 20 09/02/18 09:30 Blood Pressure 140/76 09/02/18 09:30 O2 Sat by Pulse Oximetry (%) Laboratory Last Values WBC 5.9 K/mm3 (4.0-10.0) 08/31/18 07:30 RBC 4.47 M/mm3 (4.00-5.60) 08/31/18 07:30 Hgb 12.1 GM/dL (11.7-16.9) 08/31/18 07:30 Hct 38.5 % (35.4-49) D 08/31/18 07:30 MCV 86.1 fl (80-96) 08/31/18 07:30 MCH 27.0 pg (25.7-33.7) 08/31/18 07:30 MCHC 31.4 g/dl (32.0-35.9) L 08/31/18 07:30 RDW 14.1 % (11.9-15.9) 08/31/18 07:30 Plt Count 185 K/MM3 (134-434) 08/31/18 07:30 MPV 9.2 fl (7.5-11.1) D 08/31/18 07:30 Sodium 142 mmol/L (136-145) 08/31/18 07:30 Potassium 3.9 mmol/L (3.5-5.1) 08/31/18 07:30 Chloride 108 mmol/L (98-107) H 08/31/18 07:30 Carbon Dioxide 27 mmol/L (21-32) 08/31/18 07:30 Anion Gap 7 MMOL/L (8-16) L 08/31/18 07:30 BUN 16 mg/dL (7-18) 08/31/18 07:30 Creatinine 1.2 mg/dL (0.55-1.3) 08/31/18 07:30 Creat Clearance w eGFR > 60 (>60) 08/31/18 07:30 Random Glucose 104 mg/dL (74-106) 08/31/18 07:30 Calcium 8.2 mg/dL (8.5-10.1) L 08/31/18 07:30 Total Bilirubin 0.6 mg/dL (0.2-1) 08/31/18 07:30 AST 28 U/L (15-37) 08/31/18 07:30 ALT 40 U/L (13-61) 08/31/18 07:30 Alkaline Phosphatase 56 U/L (45-117) 08/31/18 07:30 Total Protein 6.0 g/dl (6.4-8.2) L 08/31/18 07:30 Albumin 3.3 g/dl (3.4-5.0) L 08/31/18 07:30 Urine Color Ltyellow 08/30/18 23:10 Urine Appearance Cloudy 08/30/18 23:10 Urine pH 5.0 (5.0-8.0) 08/30/18 23:10 Ur Specific [place] 1.028 (1.010-1.035) 08/30/18 23:10 Urine Protein Negative (NEGATIVE) 08/30/18 23:10 Urine Glucose (UA) Negative (NEGATIVE) 08/30/18 23:10 Urine Ketones Negative (NEGATIVE) 08/30/18 23:10 Urine Blood Negative (NEGATIVE) 08/30/18 23:10 Urine Nitrite Negative (NEGATIVE) 08/30/18 23:10 Urine Bilirubin Negative (<2.0 mg/dL) 08/30/18 23:10 Urine Urobilinogen Negative mg/dL (0.2-1.0) 08/30/18 23:10 Ur Leukocyte Esterase Negative (NEGATIVE) 08/30/18 23:10 RPR Titer Nonreactive (NONREACTIVE) 08/31/18 07:30 HIV 1&2 Antibody Screen Negative 08/31/18 07:30 HIV P24 Antigen Negative 08/31/18 07:30 lab noted Assessment: 09/02/18 10:46 mild withdrawal sx Plan: medically supervised detox
[2018-09-02] MEDS ORDERED: amLODIPine BESYLATE 5 MG TABLET (FP) PO SCH ×2 (10:45)
[2018-09-02 21:41] VITALS: TEMP 97.7
[2018-09-02] MEDS: THIAMINE HCL 100 MG TABLET (FP) PO SCH (22:16)
[2018-09-02] MEDS: MELATONIN 5 MG TABLETS PO PRN (22:17)
[2018-09-03 06:35] VITALS: BP 156/92; PULSE 61
[2018-09-03] MEDS ORDERED: diazePAM 5 MG TABLET PO SCH (10:00)
[2018-09-03] MEDS: PRENATAL VITAMINS W/ FOLIC ACID TABLET (FP) PO SCH (10:01)
--- NOTE | 2018-09-03 13:37 | DS ---
[facility] Detox Discharge Summary Admission Date: 08/30/18 Discharge Date: 09/03/18 - History Present History: Alcohol Dependence Additional Comments: 53 years old male admitted on 08/30/18 for alcohol withdrawal sx completed alcohol detox regimen tolerated well denies alcohol withdrawal sx alert oriented x 3 no acute distress aftercare [facility] - Physical Exam Results Vital Signs: Vital Signs Temperature 97.7 F 09/03/18 06:35 Pulse Rate 61 09/03/18 06:35 Respiratory Rate 18 09/03/18 06:35 Blood Pressure 156/92 09/03/18 06:35 O2 Sat by Pulse Oximetry (%) Pertinent Admission Physical Exam Findings: alcohol withdrawal sx Vital Signs Temperature 97.7 F 09/03/18 06:35 Pulse Rate 61 09/03/18 06:35 Respiratory Rate 18 09/03/18 06:35 Blood Pressure 156/92 09/03/18 06:35 O2 Sat by Pulse Oximetry (%) Laboratory Last Values WBC 5.9 K/mm3 (4.0-10.0) 08/31/18 07:30 RBC 4.47 M/mm3 (4.00-5.60) 08/31/18 07:30 Hgb 12.1 GM/dL (11.7-16.9) 08/31/18 07:30 Hct 38.5 % (35.4-49) D 08/31/18 07:30 MCV 86.1 fl (80-96) 08/31/18 07:30 MCH 27.0 pg (25.7-33.7) 08/31/18 07:30 MCHC 31.4 g/dl (32.0-35.9) L 08/31/18 07:30 RDW 14.1 % (11.9-15.9) 08/31/18 07:30 Plt Count 185 K/MM3 (134-434) 08/31/18 07:30 MPV 9.2 fl (7.5-11.1) D 08/31/18 07:30 Sodium 142 mmol/L (136-145) 08/31/18 07:30 Potassium 3.9 mmol/L (3.5-5.1) 08/31/18 07:30 Chloride 108 mmol/L (98-107) H 08/31/18 07:30 Carbon Dioxide 27 mmol/L (21-32) 08/31/18 07:30 Anion Gap 7 MMOL/L (8-16) L 08/31/18 07:30 BUN 16 mg/dL (7-18) 08/31/18 07:30 Creatinine 1.2 mg/dL (0.55-1.3) 08/31/18 07:30 Creat Clearance w eGFR > 60 (>60) 08/31/18 07:30 Random Glucose 104 mg/dL (74-106) 08/31/18 07:30 Calcium 8.2 mg/dL (8.5-10.1) L 08/31/18 07:30 Total Bilirubin 0.6 mg/dL (0.2-1) 08/31/18 07:30 AST 28 U/L (15-37) 08/31/18 07:30 ALT 40 U/L (13-61) 08/31/18 07:30 Alkaline Phosphatase 56 U/L (45-117) 08/31/18 07:30 Total Protein 6.0 g/dl (6.4-8.2) L 08/31/18 07:30 Albumin 3.3 g/dl (3.4-5.0) L 08/31/18 07:30 Urine Color Ltyellow 08/30/18 23:10 Urine Appearance Cloudy 08/30/18 23:10 Urine pH 5.0 (5.0-8.0) 08/30/18 23:10 Ur Specific [place] 1.028 (1.010-1.035) 08/30/18 23:10 Urine Protein Negative (NEGATIVE) 08/30/18 23:10 Urine Glucose (UA) Negative (NEGATIVE) 08/30/18 23:10 Urine Ketones Negative (NEGATIVE) 08/30/18 23:10 Urine Blood Negative (NEGATIVE) 08/30/18 23:10 Urine Nitrite Negative (NEGATIVE) 08/30/18 23:10 Urine Bilirubin Negative (<2.0 mg/dL) 08/30/18 23:10 Urine Urobilinogen Negative mg/dL (0.2-1.0) 08/30/18 23:10 Ur Leukocyte Esterase Negative (NEGATIVE) 08/30/18 23:10 RPR Titer Nonreactive (NONREACTIVE) 08/31/18 07:30 HIV 1&2 Antibody Screen Negative 08/31/18 07:30 HIV P24 Antigen Negative 08/31/18 07:30 lab noted - Treatment Hospital Course: Detox Protocol Followed, Detoxed Safely, Responded well, Discharged Condition Good, Rehab Referral Accepted Patient has Accepted a Rehab Referral to: [facility] - Medication Discharge Medications: Ambulatory Orders Amlodipine Besylate [Norvasc -] 5 mg PO BID 09/02/18 - Diagnosis (1) Alcohol dependence with uncomplicated withdrawal Status: Acute (2) Hypertension Status: Chronic Qualifiers: Hypertension type: essential hypertension Qualified Code(s): I10 - Essential (primary) hypertension (3) Positive PPD, treated Status: Resolved - AMA Did Patient Leave Against Medical Advice: No
== END 2018-09-03 10:00 | disposition home or self-care (01) | DRG 774 ==
LOC: YASAS 11:57 → Y6N 18:21
PROC: HZ2ZZZZ Detoxification Services for Substance Abuse Treatment (ICD-10-PCS; principal; 2018-08-30)
DX: F10.230 Alcohol dependence with withdrawal, uncomplicated (principal); F14.20 Cocaine dependence, uncomplicated; F12.20 Cannabis dependence, uncomplicated; F19.24 Other psychoactive substance dependence with psychoactive substance-induced mood disorder; F43.10 Post-traumatic stress disorder, unspecified; I10 Essential (primary) hypertension; R76.11 Nonspecific reaction to tuberculin skin test without active tuberculosis; H40.9 Unspecified glaucoma; H91.8X1 Other specified hearing loss, right ear; E66.9 Obesity, unspecified; Z68.36 Body mass index [BMI] 36.0-36.9, adult
CPT/HCPCS: 36415; 71046-TC-FY; 80053; 81003; 85027; 86593; 87389; J0735

== ENCOUNTER 2020-07-08 12:16 | Inpatient (IN) | payer OTHER ==
--- NOTE | 2020-07-08 12:44 | BHS.RME ---
Substance Use & Tx History - Substance Use History Alcohol Substance amount: 4 24 oz beers + 1 pint vodka Frequency of use: Daily Substance route: Oral Date of Last Use: 07/08/20 (1 beer at 5am, started age 13, multiple blackouts) Cocaine-Crack Substance amount: $50 Frequency of use: Daily Substance route: Smoking Date of Last Use: 07/07/20 (started age 20) Marijuana/Hashish Substance amount: $20 Frequency of use: Daily Substance route: Smoking Date of Last Use: 07/08/20 - Last Treatment Date of last treatment: 2014 completed detox Treatment type: Substance Use Disorder ([facility]RIQUE) Where was last treatment: Detox Physical/Psych/Mental Status - Behavior General Behavior: Increased activity (restlessness, agitation) Eye Contact: Normal - Cooperativeness Cooperativeness: Cooperative - Thinking Thought Processes: Tight, Logical, Goal Directed - Physical Health Problems Is patient presently having any pain?: No Does patient presently have any injuries (include location): No Does patient currently have a fever: No Is patient : No CIWA Nausea/Vomitin Muscle Tremors: 3 Anxiety: 3 Agitation: 4-Moderately Restless Paroxysmal Sweats: 4-Forehead w/Sweat Beads Orientation: 1-Uncertain about Date Tacttile Disturbances: 0-None Auditory Disturbances: 0-None Visual Disturbances: 0-None Headache: 0-None Present CIWA-Ar Total Score: 18
--- NOTE | 2020-07-08 13:59 | HP ---
CIWA Score Nausea/Vomitin Muscle Tremors: 3 Anxiety: 3 Agitation: 4-Moderately Restless Paroxysmal Sweats: 4-Forehead w/Sweat Beads Orientation: 1-Uncertain about Date Tacttile Disturbances: 0-None Auditory Disturbances: 0-None Visual Disturbances: 0-None Headache: 0-None Present CIWA-Ar Total Score: 18 - Admission Criteria OASAS Guidelines: Admission for Medically Managed Detox: Requires at least one of the followin. CIWA greater than 12 2. Seizures within the past 24 hours 3. Delirium tremens within the past 24 hours 4. Hallucinations within the past 24 hours 5. Acute intervention needed for co occurring medical disorder 6. Acute intervention needed for co occurring psychiatric disorder 7. Severe withdrawal that cannot be handled at a lower level of care (continued vomiting, continued diarrhea, abnormal vital signs) requiring intravenous medication and/or fluids 8. Admitting History and Physical - Smoking History Smoking history: Never smoked Have you smoked in the past 12 months: No - Alcohol/Substance Use Hx Alcohol Use: Yes Admission ROS [facility] Chief Complaint: " I need to stop drinking before I lose my housing." Allergies/Adverse Reactions: Allergies Allergy/AdvReac Type Severity Reaction Status Date / Time No Known Allergies Allergy Verified 08/30/18 17:23 History of Present Illness: 55 year old male with history of alcohol dependence with withdrawal, cocaine use disorder, cannabis use disorder and nicotine dependence. He was last here in 2014 and completed detox and then was abstinent and then just recently detoxed. - Substance Use History Alcohol Substance amount: 4 24 oz beers + 1 pint vodka Frequency of use: Daily Substance route: Oral Date of Last Use: 07/08/20 (1 beer at 5am, started age 13, multiple blackouts) Multiple blackouts, last one 2 months ago, and endorses the need for an eye op ener daily Cocaine-Crack Substance amount: $50 Frequency of use: Daily Substance route: Smoking Date of Last Use: 07/07/20 (started age 20) Marijuana/Hashish Substance amount: $20 Frequency of use: Daily Substance route: Smoking Date of Last Use: 07/08/20 - Last Treatment Date of last treatment: 2014 completed detox Treatment type: Substance Use Disorder (ENRIQUE) Where was last treatment: Detox PMH: Right sided deafness, Right eye glaucoma Psurg: None Psych: Depression, Aniety ( No meds - stopped depakote and risperdal under psych care at his facility in [place]. Lives in [facility] residence but environment is not conducive to abstinence since many residents are using substances there. LISANDRO= 0.00 CIWA=18 patient meets criteria for detox as he has just relapsed after 5 years of abstinence, has poor recovery environment and has psych co-morbid disorder history. Exam Limitations: No Limitations - Ebola screening Have you traveled outside of the country in the last 21 days: No Have you had contact with anyone from an Ebola affected area: No Have you been sick,other than usual withdrawal symptoms: No Do you have a fever: No - Review of Systems Constitutional: Chills, Diaphoresis EENT: reports: No Symptoms Reported Respiratory: reports: No Symptoms reported Cardiac: reports: No Symptoms Reported GI: reports: No Symptoms Reported : reports: No Symptoms Reported Musculoskeletal: reports: No Symptoms Reported Integumentary: reports: No Symptoms Reported Neuro: reports: No Symptoms reported Endocrine: reports: No Symptoms Reported Hematology: reports: No Symptoms Reported Psychiatric: reports: Judgement Intact, Mood/Affect Appropiate, Orientated x3, Agitated, Anxious Other Systems: Reviewed and Negative Patient History - Patient Medical History Hx Anemia: No Hx Asthma: No Hx Chronic Obstructive Pulmonary Disease (COPD): No Hx Cancer: No Hx Cardiac Disorders: No Hx Congestive Heart Failure: No Hx Hypertension: Yes Hx Hypercholesterolemia: No Hx Pacemaker: No HX Cerebrovascular Accident: No Hx Seizures: No Hx Dementia: No Hx Diabetes: No Hx Gastrointestinal Disorders: No Hx Liver Disease: No Hx Genitourinary Disorders: No Hx Sexually Transmitted Disorders: No Hx Renal Disease (ESRD): No Hx Thyroid Disease: No Hx Human Immunodeficiency Virus (HIV): No (08/04 last) Hx Hepatitis C: No Hx Depression: Yes Hx Suicide Attempt: No Hx Bipolar Disorder: No Hx Schizophrenia: No - Patient Surgical History Past Surgical History: No Hx Neurologic Surgery: No Hx Cataract Extraction: No Hx Cardiac Surgery: No Hx Lung Surgery: No Hx Breast Surgery: No Hx Breast Biopsy: No Hx Abdominal Surgery: No Hx Appendectomy: No Hx Cholecystectomy: No Hx Genitourinary Surgery: No Hx Section: No Hx Orthopedic Surgery: No Anesthesia Reaction: No - PPD History Previous Implant?: Yes Documented Results: Positive w/o proof Implanted On Prior [facility] Admission?: No PPD to be Administered?: No - Smoking Cessation Smoking history: Never smoked Have you smoked in the past 12 months: No Cigars Per Day: 0 Hx Chewing Tobacco Use: No Initiated information on smoking cessation: No - Substances abused Alcohol Other (specify): 4 24 oz cans beer + 1 pint vodka Substance route: Oral Frequency: Daily Age of first use: 13 Date of last use: 07/08/20 Crack Substance route: Smoking Frequency: Daily Amount used: $50 Age of first use: 20 Date of last use: 07/07/20 Marijuana/Hashish Other (specify): $20 Substance route: Smoking Frequency: Daily Amount used: $20 Age of first use: 13 Date of last use: 07/08/20 Admission Physical Exam S - Physical General Appearance: Yes: Mild Distress, Obese, Tremorous, Irritable, Sweating, Anxious HEENTM: Yes: EOMI, Hearing grossly Normal, Normal ENT Inspection, Normocephalic, Normal Voice, KRIS, Pharynx Normal, Tm's normal Respiratory: Yes: Chest Non-Tender, Lungs Clear, Normal Breath Sounds, No Respiratory Distress, No Accessory Muscle Use Neck: Yes: No masses,lesions,Nodules, Supple, Trachea in good position Breast: Yes: Within Normal Limits Cardiology: Yes: Regular Rhythm, Regular Rate, S1, S2 Abdominal: Yes: Normal Bowel Sounds, Non Tender, Soft, Protuberent Genitourinary: Yes: Within Normal Limits Back: Yes: Normal Inspection Musculoskeletal: Yes: full range of Motion, Gait Steady, Pelvis Stable Extremities: Yes: Normal Capillary Refill, Normal Inspection, Normal Range of Motion, Non-Tender 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, Fully Oriented, Alert, Motor Strength 5/5, Normal Mood/Affect, Normal Response Integumentary: Yes: Normal Color, Dry, Warm Lymphatic: Yes: Within Normal Limits - Diagnostic (1) Alcohol dependence with uncomplicated withdrawal Current Visit: Yes Status: Acute (2) Cannabis dependence Current Visit: Yes Status: Acute (3) Cocaine dependence Current Visit: Yes Status: Acute Qualifiers: Substance use status: uncomplicated Qualified Code(s): F14.20 - Cocaine dependence, uncomplicated (4) Cannabis dependence, uncomplicated Current Visit: Yes Status: Chronic (5) Hypertension Current Visit: Yes Status: Chronic Qualifiers: Hypertension type: essential hypertension Qualified Code(s): I10 - Essential (primary) hypertension Comment: NO SALT DIET + AMLODIPINE 5 MG BID + CLONIDINE 0.1 MG Q6H PRN (6) Depression (emotion) Current Visit: Yes Status: Suspected Qualifiers: Depression Type: dysthymia Qualified Code(s): F34.1 - Dysthymic disorder (7) Post traumatic stress disorder (PTSD) Current Visit: Yes Status: Suspected (8) Positive PPD, treated Current Visit: Yes Status: Resolved Cleared for Admission [facility] - Detox or Rehab [facility] Level of Care: Medically Managed Detox Regimen/Protocol: Librium Claeared for Rehab Admission: No Screened but not Admitted - Documentation of Visit Screened but not Admitted: No Breathalyzer - Breathalyzer Breathalyzer: 0 Vital Signs - Vital Signs Vital signs refused: No Temperature: 97.9 F Pulse Rate: 65 Respiratory Rate: 12 Blood Pressure: 130/69 BP Location: Left Arm Blood Pressure position: Sitting - Height Height: 5 ft 11 in - Weight Weight: 237 lb Weight measurement method: Standing scale - BMI Body Mass Index (BMI): 33.0 - Bowel Function Bowel Movement: No Inpatient Rehab Admission - Rehab Decision to Admit Inpatient rehab admission?: No
[2020-07-08 14:09] VITALS: BMI 33.0
[2020-07-08] MEDS ORDERED: chlordiazePOXIDE HCL 25 MG CAPSULE PO PRN (14:21)
[2020-07-08] MEDS ORDERED: BISMUTH SUBSALICYLATE 262 MG/15 ML BTL PO PRN (14:21)
[2020-07-08] MEDS ORDERED: ONDANSETRON *ODT* 4 MG TABLET SL PRN (14:21)
[2020-07-08] MEDS ORDERED: MENTHOL/PHENOL 1 EACH UD MM PRN (14:21)
[2020-07-08] MEDS ORDERED: MAGNESIUM CITRATE 300 ML BOTTLE PO PRN (14:21)
[2020-07-08] MEDS ORDERED: METHOCARBAMOL 500 MG TABLET PO PRN (14:21)
[2020-07-08] MEDS ORDERED: MAGNESIUM HYDROX 2400MG/30ML ORAL SUSPENSION 30 ML CUP PO PRN (14:21)
[2020-07-08] MEDS ORDERED: MAG HYDROX/AL HYDROX/SIMETH 30 ML UNIT-DOSE CUP PO PRN (14:21)
[2020-07-08] MEDS ORDERED: ACETAMINOPHEN 325 MG TABLET (FP) PO PRN ×2 (14:21)
[2020-07-08] MEDS ORDERED: IBUPROFEN 400 MG TABLET (FP) PO PRN (14:21)
[2020-07-08] MEDS: PRENATAL VITAMINS W/ FOLIC ACID TABLET (FP) PO SCH (15:34)
[2020-07-08 17:15] LABS: HEMATOCRIT 41.6 % (35.4-49); HEMOGLOBIN 13.5 GM/dL (11.7-16.9); MCH 28.3 pg (25.7-33.7); MCHC 32.5 g/dl (32.0-35.9); MEAN CELL VOLUME 87.2 fl (80-96); MEAN PLT VOLUME 10.2 fl (7.5-11.1); PLATELET COUNT 176 K/MM3 (134-434); RBC 4.78 M/mm3 (4.00-5.60); RDW 14.4 % (11.9-15.9); WHITE BLOOD COUNT 5.7 K/mm3 (4.0-10.0)
[2020-07-08 17:26] LABS: ALBUMIN 3.8 g/dl (3.4-5.0); BILIRUBIN,TOTAL 0.8 mg/dL (0.2-1); BLOOD UREA NITROGEN 25.2 mg/dL (7-18); CALCIUM 8.5 mg/dL (8.5-10.1); CREATININE 1.2 mg/dL (0.55-1.3); POTASSIUM 4.3 mmol/L (3.5-5.1); TOT PROT 6.7 g/dl (6.4-8.2)
[2020-07-08] MEDS: chlordiazePOXIDE HCL 25 MG CAPSULE PO SCH ×2 (17:53→22:15)
[2020-07-08] MEDS: hydrOXYzine PAMOATE 25 MG CAPSULE (FP) PO SCH ×2 (17:53→22:15)
[2020-07-08] MEDS ORDERED: MELATONIN 5 MG TABLETS PO SCH (22:00)
[2020-07-08] MEDS: THIAMINE HCL 100 MG TABLET (FP) PO SCH (22:15)
[2020-07-09] MEDS: hydrOXYzine PAMOATE 25 MG CAPSULE (FP) PO SCH ×2 (06:53→10:15)
[2020-07-09] MEDS: chlordiazePOXIDE HCL 25 MG CAPSULE PO SCH ×4 (06:53→22:35)
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
[2020-07-09] MEDS: PRENATAL VITAMINS W/ FOLIC ACID TABLET (FP) PO SCH (10:15)
[2020-07-09] MEDS ORDERED: hydrOXYzine PAMOATE 25 MG CAPSULE (FP) PO PRN (12:13)
--- NOTE | 2020-07-09 12:18 | PN ---
S CIWA - CIWA Score Nausea/Vomitin-No Nausea/No Vomiting Muscle Tremors: 3 Anxiety: 3 Agitation: 3 Paroxysmal Sweats: 3 Orientation: 0-Oriented Tacttile Disturbances: 0-None Auditory Disturbances: 0-None Visual Disturbances: 0-None Headache: 0-None Present CIWA-Ar Total Score: 12 BHS Progress Note (SOAP) Subjective: interrupted sleep sweats shakes body aches irritable chills Objective: 07/09/20 12:14 Vital Signs Temperature 98 F 07/09/20 06:12 Pulse Rate 55 L 07/09/20 06:12 Respiratory Rate 18 07/09/20 06:12 Blood Pressure 146/90 07/09/20 06:12 O2 Sat by Pulse Oximetry (%) 97 07/09/20 06:12 Laboratory Tests 07/08/20 07/08/20 07/08/20 14:00 14:00 14:00 WBC 5.7 RBC 4.78 Hgb 13.5 Hct 41.6 MCV 87.2 MCH 28.3 MCHC 32.5 RDW 14.4 Plt Count 176 MPV 10.2 D Sodium 141 Potassium 4.3 Chloride 110 H Carbon Dioxide 25 Anion Gap 6 L BUN 25.2 H Creatinine 1.2 Est GFR (CKD-EPI)AfAm 77.33 Est GFR (CKD-EPI)NonAf 66.72 Random Glucose 104 Calcium 8.5 Total Bilirubin 0.8 AST 32 ALT 39 Alkaline Phosphatase 62 Total Protein 6.7 Albumin 3.8 Syphilis Serology Non-reactive HIV Ag/Ab Combo Qual 07/08/20 14:00 WBC RBC Hgb Hct MCV MCH MCHC RDW Plt Count MPV Sodium Potassium Chloride Carbon Dioxide Anion Gap BUN Creatinine Est GFR (CKD-EPI)AfAm Est GFR (CKD-EPI)NonAf Random Glucose Calcium Total Bilirubin AST ALT Alkaline Phosphatase Total Protein Albumin Syphilis Serology HIV Ag/Ab Combo Qual Negative labs noted elevated BUN noted; encourage fluids aaox3 ambulating no acute distress Assessment: 07/09/20 12:17 withdrawals Plan: continue detox increase fluids repeat CMP
[2020-07-09] MEDS: THIAMINE HCL 100 MG TABLET (FP) PO SCH (22:35)
[2020-07-10] MEDS ORDERED: MASKS NR ONE (05:31)
[2020-07-10] MEDS: chlordiazePOXIDE HCL 25 MG CAPSULE PO SCH ×4 (06:46→22:33)
--- NOTE | 2020-07-10 10:47 | PN ---
[facility] CIWA - CIWA Score Nausea/Vomitin-No Nausea/No Vomiting Muscle Tremors: 3 Anxiety: 2 Agitation: 2 Paroxysmal Sweats: 2 Orientation: 0-Oriented Tacttile Disturbances: 0-None Auditory Disturbances: 1-Very Mild Visual Disturbances: 0-None Headache: 0-None Present CIWA-Ar Total Score: 10 S Progress Note (SOAP) Subjective: Complaints of anxiety, sweats, agitation, tremors, auditory disturbances and skin irritation due soap. requesting Aveeno soap. Objective: 07/10/20 10:46 Vital Signs 07/10/20 07/10/20 05:49 09:00 Temperature 96.9 F L 97.8 F Pulse Rate 68 60 Respiratory 20 20 Rate Blood Pressure 158/106 H 141/81 O2 Sat by Pulse 98 98 Oximetry (%) Laboratory Last Values WBC 5.7 K/mm3 (4.0-10.0) 07/08/20 14:00 RBC 4.78 M/mm3 (4.00-5.60) 07/08/20 14:00 Hgb 13.5 GM/dL (11.7-16.9) 07/08/20 14:00 Hct 41.6 % (35.4-49) 07/08/20 14:00 MCV 87.2 fl (80-96) 07/08/20 14:00 MCH 28.3 pg (25.7-33.7) 07/08/20 14:00 MCHC 32.5 g/dl (32.0-35.9) 07/08/20 14:00 RDW 14.4 % (11.9-15.9) 07/08/20 14:00 Plt Count 176 K/MM3 (134-434) 07/08/20 14:00 MPV 10.2 fl (7.5-11.1) D 07/08/20 14:00 Sodium 141 mmol/L (136-145) 07/08/20 14:00 Potassium 4.3 mmol/L (3.5-5.1) 07/08/20 14:00 Chloride 110 mmol/L (98-107) H 07/08/20 14:00 Carbon Dioxide 25 mmol/L (21-32) 07/08/20 14:00 Anion Gap 6 MMOL/L (8-16) L 07/08/20 14:00 BUN 25.2 mg/dL (7-18) H 07/08/20 14:00 Creatinine 1.2 mg/dL (0.55-1.3) 07/08/20 14:00 Est GFR (CKD-EPI)AfAm 77.33 07/08/20 14:00 Est GFR (CKD-EPI)NonAf 66.72 07/08/20 14:00 Random Glucose 104 mg/dL (74-106) 07/08/20 14:00 Calcium 8.5 mg/dL (8.5-10.1) 07/08/20 14:00 Total Bilirubin 0.8 mg/dL (0.2-1) 07/08/20 14:00 AST 32 U/L (15-37) 07/08/20 14:00 ALT 39 U/L (13-61) 07/08/20 14:00 Alkaline Phosphatase 62 U/L (45-117) 07/08/20 14:00 Total Protein 6.7 g/dl (6.4-8.2) 07/08/20 14:00 Albumin 3.8 g/dl (3.4-5.0) 07/08/20 14:00 Syphilis Serology Non-reactive (NONREACTIVE) 07/08/20 14:00 COVID-19 (AMBER) Not detected (Not Detected) 07/08/20 14:40 HIV Ag/Ab Combo Qual Negative (NEGATIVE) 07/08/20 14:00 labs notes with elevated BUN. Assessment: 07/10/20 10:47 Alert and oriented x 3, in no acute distress. Full ROM, ambulating in the unit without assistance. Skin was to touch with any lesions. Withdrawal symptoms. Elevated BUN. 07/10/20 10:48 Plan: Continue detox protocol. Encourage fluid.
[2020-07-10] MEDS: PRENATAL VITAMINS W/ FOLIC ACID TABLET (FP) PO SCH (10:49)
[2020-07-10] MEDS ORDERED: COLLOIDAL OATMEAL 1 BAR EACH TP PRN (18:09)
[2020-07-10] MEDS: MELATONIN 5 MG TABLETS PO PRN (22:33)
[2020-07-10] MEDS: THIAMINE HCL 100 MG TABLET (FP) PO SCH (22:33)
[2020-07-11] MEDS ORDERED: chlordiazePOXIDE HCL 10 MG CAPSULE PO PRN
[2020-07-11] MEDS: chlordiazePOXIDE HCL 10 MG CAPSULE PO SCH ×4 (07:03→22:20)
[2020-07-11] MEDS: PRENATAL VITAMINS W/ FOLIC ACID TABLET (FP) PO SCH (10:06)
[2020-07-11 11:13] LABS: ALBUMIN 3.9 g/dl (3.4-5.0); BILIRUBIN,TOTAL 0.8 mg/dL (0.2-1); BLOOD UREA NITROGEN 13.6 mg/dL (7-18); CALCIUM 8.9 mg/dL (8.5-10.1); CREATININE 1.3 mg/dL (0.55-1.3); POTASSIUM 3.9 mmol/L (3.5-5.1)
--- NOTE | 2020-07-11 17:37 | PN ---
S CIWA - CIWA Score Nausea/Vomitin-No Nausea/No Vomiting Muscle Tremors: 2 Anxiety: 2 Agitation: 1-Slight > Activity Paroxysmal Sweats: 2 Orientation: 0-Oriented Tacttile Disturbances: 0-None Auditory Disturbances: 0-None Visual Disturbances: 0-None Headache: 0-None Present CIWA-Ar Total Score: 7 BHS Progress Note (SOAP) Subjective: Sweating, chills Objective: 07/11/20 17:35 Last Vital Signs Temp Pulse Resp BP Pulse Ox 96.4 F L 79 18 159/101 H 96 07/11/20 12:35 07/11/20 12:35 07/11/20 12:35 07/11/20 12:35 07/11/20 09:01 Elevated b/p: has htn, not on med Laboratory Tests 07/08/20 07/08/20 07/08/20 14:00 14:00 14:00 WBC 5.7 RBC 4.78 Hgb 13.5 Hct 41.6 MCV 87.2 MCH 28.3 MCHC 32.5 RDW 14.4 Plt Count 176 MPV 10.2 D Sodium 141 Potassium 4.3 Chloride 110 H Carbon Dioxide 25 Anion Gap 6 L BUN 25.2 H Creatinine 1.2 Est GFR (CKD-EPI)AfAm 77.33 Est GFR (CKD-EPI)NonAf 66.72 Random Glucose 104 Calcium 8.5 Total Bilirubin 0.8 AST 32 ALT 39 Alkaline Phosphatase 62 Total Protein 6.7 Albumin 3.8 Syphilis Serology Non-reactive COVID-19 (AMBER) HIV Ag/Ab Combo Qual 07/08/20 07/08/20 07/11/20 14:00 14:40 07:30 WBC RBC Hgb Hct MCV MCH MCHC RDW Plt Count MPV Sodium 141 Potassium 3.9 Chloride 107 Carbon Dioxide 27 Anion Gap 8 BUN 13.6 Creatinine 1.3 Est GFR (CKD-EPI)AfAm 70.20 Est GFR (CKD-EPI)NonAf 60.57 Random Glucose 107 H Calcium 8.9 Total Bilirubin 0.8 AST 21 ALT 38 Alkaline Phosphatase 66 Total Protein 7.0 Albumin 3.9 Syphilis Serology COVID-19 (AMBER) Not detected HIV Ag/Ab Combo Qual Negative Labs reviewed Assessment: 07/11/20 17:40 Withdrawal sxs Noted with htn Plan: Continue detox Encourage PO water intake HTN: start norvasc 10mg PO x 1 dose then 5mg PO daily starting tomorrow, monitor b/p, follow up with PCP post discharge for management
[2020-07-11] MEDS ORDERED: amLODIPine BESYLATE 10 MG TABLET (FP) PO ONE (17:38)
[2020-07-11] MEDS: THIAMINE HCL 100 MG TABLET (FP) PO SCH (22:20)
[2020-07-11] MEDS: MELATONIN 5 MG TABLETS PO PRN (22:21)
[2020-07-12] MEDS ORDERED: chlordiazePOXIDE HCL 10 MG CAPSULE PO SCH (05:00)
[2020-07-12] MEDS ORDERED: amLODIPine BESYLATE 5 MG TABLET (FP) PO SCH (10:00)
[2020-07-12] MEDS: PRENATAL VITAMINS W/ FOLIC ACID TABLET (FP) PO SCH (10:23)
[2020-07-12 12:50] VITALS: BP 152/82; PULSE 74; TEMP 97.1
--- NOTE | 2020-07-12 13:13 | PN ---
[facility] CIWA - CIWA Score Nausea/Vomitin-No Nausea/No Vomiting Muscle Tremors: 1-None Visible, but [place] Anxiety: 0-No Anxiety, at Ease Agitation: 0-Normal Activity Paroxysmal Sweats: No Perspiration Orientation: 0-Oriented Tacttile Disturbances: 0-None Auditory Disturbances: 0-None Visual Disturbances: 0-None Headache: 0-None Present CIWA-Ar Total Score: 1 S Progress Note (SOAP) Subjective: feeling very good Objective: 07/12/20 13:13 Vital Signs Temperature 97.1 F L 07/12/20 12:22 Pulse Rate 74 07/12/20 12:22 Respiratory Rate 20 07/12/20 12:22 Blood Pressure 152/82 07/12/20 12:22 O2 Sat by Pulse Oximetry (%) 99 07/12/20 12:22 aaox3 ambulating no acute distress Assessment: 07/12/20 13:13 no s/s of withdrawals noted Plan: d/c today
--- NOTE | 2020-07-12 13:15 | DS ---
[facility] Detox Discharge Summary Admission Date: 07/08/20 Discharge Date: 07/12/20 - History Present History: Alcohol Dependence, Cannabis Dependence, Cocaine Dependence - Physical Exam Results Vital Signs: Vital Signs Temperature 97.1 F L 07/12/20 12:22 Pulse Rate 74 07/12/20 12:22 Respiratory Rate 07/12/20 12:22 Blood Pressure 152/82 07/12/20 12:22 O2 Sat by Pulse Oximetry (%) 99 07/12/20 12:22 Pertinent Admission Physical Exam Findings: Vital Signs Temperature 97.1 F L 07/12/20 12:22 Pulse Rate 74 07/12/20 12:22 Respiratory Rate 07/12/20 12:22 Blood Pressure 152/82 07/12/20 12:22 O2 Sat by Pulse Oximetry (%) 99 07/12/20 12:22 Laboratory Tests 07/08/20 07/08/20 07/08/20 14:00 14:00 14:00 WBC 5.7 RBC 4.78 Hgb 13.5 Hct 41.6 MCV 87.2 MCH 28.3 MCHC 32.5 RDW 14.4 Plt Count 176 MPV 10.2 D Sodium 141 Potassium 4.3 Chloride 110 H Carbon Dioxide 25 Anion Gap 6 L BUN 25.2 H Creatinine 1.2 Est GFR (CKD-EPI)AfAm 77.33 Est GFR (CKD-EPI)NonAf 66.72 Random Glucose 104 Calcium 8.5 Total Bilirubin 0.8 AST 32 ALT 39 Alkaline Phosphatase 62 Total Protein 6.7 Albumin 3.8 Syphilis Serology Non-reactive COVID-19 (AMBER) HIV Ag/Ab Combo Qual 07/08/20 07/08/20 07/11/20 14:00 14:40 07:30 WBC RBC Hgb Hct MCV MCH MCHC RDW Plt Count MPV Sodium 141 Potassium 3.9 Chloride 107 Carbon Dioxide 27 Anion Gap 8 BUN 13.6 Creatinine 1.3 Est GFR (CKD-EPI)AfAm 70.20 Est GFR (CKD-EPI)NonAf 60.57 Random Glucose 107 H Calcium 8.9 Total Bilirubin 0.8 AST 21 ALT 38 Alkaline Phosphatase 66 Total Protein 7.0 Albumin 3.9 Syphilis Serology COVID-19 (AMBER) Not detected HIV Ag/Ab Combo Qual Negative aaox3 ambulating no acute distress lungs CTA - Treatment Hospital Course: Detox Protocol Followed, Detoxed Safely, Responded well, Discharged Condition Good, Rehab Referral Accepted - Medication Discharge Medications: Ambulatory Orders NK [No Known Home Medication] 07/08/20 - Diagnosis (1) Alcohol dependence with uncomplicated withdrawal Current Visit: Yes Status: Chronic (2) Cannabis dependence Current Visit: Yes Status: Chronic (3) Cocaine dependence Current Visit: Yes Status: Chronic Qualifiers: Substance use status: uncomplicated Qualified Code(s): F14.20 - Cocaine dependence, uncomplicated (4) Substance-induced sleep disorder Current Visit: Yes Status: Acute (5) Bipolar disorder Current Visit: Yes Status: Chronic (6) Glaucoma, left eye Current Visit: Yes Status: Chronic (7) Hypertension Current Visit: Yes Status: Chronic Qualifiers: Hypertension type: essential hypertension Qualified Code(s): I10 - Essential (primary) hypertension (8) Post traumatic stress disorder (PTSD) Current Visit: Yes Status: Chronic (9) Depression (emotion) Current Visit: Yes Status: Suspected Qualifiers: Depression Type: dysthymia Qualified Code(s): F34.1 - Dysthymic disorder (10) Positive PPD, treated Current Visit: Yes Status: Resolved (11) Drug-induced mood disorder Current Visit: No Status: Acute (12) Syncope Current Visit: No Status: Acute (13) 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: No Status: Chronic - AMA Did Patient Leave Against Medical Advice: No
[2020-07-13] MEDS ORDERED: chlordiazePOXIDE HCL 10 MG CAPSULE PO ONE (05:00)
== END 2020-07-12 13:34 | disposition home or self-care (01) | DRG 774 ==
LOC: YASAS 12:16 → Y6N 14:37
PROVIDERS: ADMIT Allergy & Immunology; ATTEND Allergy & Immunology
PROC: HZ2ZZZZ Detoxification Services for Substance Abuse Treatment (ICD-10-PCS; principal; 2020-07-08)
DX: F10.230 Alcohol dependence with withdrawal, uncomplicated (principal); F14.20 Cocaine dependence, uncomplicated; F12.20 Cannabis dependence, uncomplicated; F19.282 Other psychoactive substance dependence with psychoactive substance-induced sleep disorder; F19.24 Other psychoactive substance dependence with psychoactive substance-induced mood disorder; F31.9 Bipolar disorder, unspecified; F43.10 Post-traumatic stress disorder, unspecified; F34.1 Dysthymic disorder; I10 Essential (primary) hypertension; H40.9 Unspecified glaucoma; H91.91 Unspecified hearing loss, right ear; Z98.42 Cataract extraction status, left eye; R76.11 Nonspecific reaction to tuberculin skin test without active tuberculosis; Z62.810 Personal history of physical and sexual abuse in childhood; Z91.410 Personal history of adult physical and sexual abuse
CPT/HCPCS: 36415; 71046-TC-FY; 80053; 85027; 86780; 87389; U0003

== ENCOUNTER 2020-09-03 11:27 | Inpatient (IN) | payer OTHER ==
[2020-09-03 12:16] VITALS: BMI 32.1
[2020-09-03] MEDS ORDERED: METHOCARBAMOL 500 MG TABLET PO PRN (12:18)
[2020-09-03] MEDS ORDERED: NICOTINE POLACRILEX 2 MG GUM BUC PRN (12:18)
[2020-09-03] MEDS ORDERED: MAGNESIUM HYDROX 2400MG/30ML ORAL SUSPENSION 30 ML CUP PO PRN (12:18)
[2020-09-03] MEDS ORDERED: ACETAMINOPHEN 325 MG TABLET (FP) PO PRN ×2 (12:18)
[2020-09-03] MEDS ORDERED: BISMUTH SUBSALICYLATE 524 MG/30 ML UD PO PRN (12:18)
[2020-09-03] MEDS ORDERED: MAGNESIUM CITRATE 300 ML BOTTLE PO PRN (12:18)
[2020-09-03] MEDS ORDERED: MENTHOL/PHENOL 1 EACH UD MM PRN (12:18)
[2020-09-03] MEDS ORDERED: ONDANSETRON *ODT* 4 MG TABLET SL PRN (12:18)
[2020-09-03] MEDS ORDERED: MAG HYDROX/AL HYDROX/SIMETH 30 ML UNIT-DOSE CUP PO PRN (12:18)
[2020-09-03] MEDS ORDERED: chlordiazePOXIDE HCL 25 MG CAPSULE PO PRN (12:18)
[2020-09-03] MEDS ORDERED: IBUPROFEN 400 MG TABLET (FP) PO PRN (12:18)
[2020-09-03] MEDS: chlordiazePOXIDE HCL 25 MG CAPSULE PO SCH ×3 (13:59→22:05)
[2020-09-03] MEDS: PRENATAL VITAMINS W/ FOLIC ACID TABLET (FP) PO SCH (14:00)
[2020-09-03] MEDS ORDERED: hydrOXYzine PAMOATE 25 MG CAPSULE (FP) PO SCH (14:00)
[2020-09-03] MEDS: NICOTINE 7 MG/24 HOURS TOPICAL PATCH TD SCH (14:01)
[2020-09-03] MEDS ORDERED: MELATONIN 5 MG TABLETS PO PRN (14:18)
[2020-09-03] MEDS ORDERED: hydrOXYzine PAMOATE 25 MG CAPSULE (FP) PO PRN (14:20)
[2020-09-03] MEDS: HYDROCHLOROTHIAZIDE 25 MG TABLET (FP) PO SCH (15:22)
[2020-09-03] MEDS: amLODIPine BESYLATE 5 MG TABLET (FP) PO SCH (15:22)
[2020-09-03 15:39] LABS: HEMOGLOBIN 13.5 GM/dL (11.7-16.9); MCH 27.7 pg (25.7-33.7); MCHC 32.1 g/dl (32.0-35.9); MEAN CELL VOLUME 86.4 fl (80-96); MEAN PLT VOLUME 9.8 fl (7.5-11.1); PLATELET COUNT 198 K/MM3 (134-434); RBC 4.86 M/mm3 (4.00-5.60); RDW 14.3 % (11.9-15.9); WHITE BLOOD COUNT 6.8 K/mm3 (4.0-10.0)
[2020-09-03 15:42] LABS: ALBUMIN 4.2 g/dl (3.4-5.0); CALCIUM 9.5 mg/dL (8.5-10.1)
[2020-09-03 15:43] LABS: BLOOD UREA NITROGEN 14.4 mg/dL (7-18)
[2020-09-03 15:46] LABS: CREATININE 1.2 mg/dL (0.55-1.3)
[2020-09-03 15:47] LABS: BILIRUBIN,TOTAL 0.8 mg/dL (0.2-1)
[2020-09-03 15:48] LABS: TOT PROT 7.3 g/dl (6.4-8.2)
[2020-09-03 16:36] LABS: HIV INTERPRETATION NEGATIVE (NEGATIVE)
[2020-09-03] MEDS: THIAMINE HCL 100 MG TABLET (FP) PO SCH (22:04)
[2020-09-03] MEDS: MELATONIN 5 MG TABLETS PO SCH (22:05)
[2020-09-04] MEDS: chlordiazePOXIDE HCL 25 MG CAPSULE PO SCH ×4 (06:21→22:20)
[2020-09-04] MEDS: amLODIPine BESYLATE 5 MG TABLET (FP) PO SCH (10:42)
[2020-09-04] MEDS: HYDROCHLOROTHIAZIDE 25 MG TABLET (FP) PO SCH (10:42)
[2020-09-04] MEDS: NICOTINE 7 MG/24 HOURS TOPICAL PATCH TD SCH (10:42)
[2020-09-04] MEDS: PRENATAL VITAMINS W/ FOLIC ACID TABLET (FP) PO SCH (10:43)
[2020-09-04] MEDS: MELATONIN 5 MG TABLETS PO SCH (22:20)
[2020-09-04] MEDS: THIAMINE HCL 100 MG TABLET (FP) PO SCH (22:20)
[2020-09-05] MEDS ORDERED: chlordiazePOXIDE HCL 10 MG CAPSULE PO PRN
[2020-09-05] MEDS ORDERED: chlordiazePOXIDE HCL 25 MG CAPSULE PO SCH (05:00)
[2020-09-05] MEDS: chlordiazePOXIDE HCL 10 MG CAPSULE PO SCH ×4 (05:16→22:17)
[2020-09-05] MEDS: HYDROCHLOROTHIAZIDE 25 MG TABLET (FP) PO SCH (10:24)
[2020-09-05] MEDS: NICOTINE 7 MG/24 HOURS TOPICAL PATCH TD SCH (10:24)
[2020-09-05] MEDS: amLODIPine BESYLATE 5 MG TABLET (FP) PO SCH (10:24)
[2020-09-05] MEDS: PRENATAL VITAMINS W/ FOLIC ACID TABLET (FP) PO SCH (10:26)
[2020-09-05] MEDS ORDERED: FLU VACCINE (FLULAVAL) PF 60 MCG/0.5 ML SYRINGE 2020-2021 IM ONE (12:00)
[2020-09-05] MEDS: THIAMINE HCL 100 MG TABLET (FP) PO SCH (22:18)
[2020-09-05] MEDS: MELATONIN 5 MG TABLETS PO SCH (22:19)
[2020-09-06] MEDS ORDERED: chlordiazePOXIDE HCL 10 MG CAPSULE PO PRN
[2020-09-06] MEDS ORDERED: chlordiazePOXIDE HCL 10 MG CAPSULE PO SCH (05:00)
[2020-09-06] MEDS: chlordiazePOXIDE HCL 10 MG CAPSULE PO SCH ×2 (06:34→17:24)
[2020-09-06] MEDS: PRENATAL VITAMINS W/ FOLIC ACID TABLET (FP) PO SCH (10:14)
[2020-09-06] MEDS: HYDROCHLOROTHIAZIDE 25 MG TABLET (FP) PO SCH (10:14)
[2020-09-06] MEDS: amLODIPine BESYLATE 5 MG TABLET (FP) PO SCH (10:14)
[2020-09-06] MEDS: NICOTINE 7 MG/24 HOURS TOPICAL PATCH TD SCH (10:14)
[2020-09-07] MEDS: THIAMINE HCL 100 MG TABLET (FP) PO SCH (00:14)
[2020-09-07] MEDS: MELATONIN 5 MG TABLETS PO SCH (00:14)
[2020-09-07] MEDS ORDERED: chlordiazePOXIDE HCL 10 MG CAPSULE PO ONE (05:00)
[2020-09-07] MEDS ORDERED: chlordiazePOXIDE HCL 10 MG CAPSULE PO SCH (05:00)
[2020-09-07 07:14] VITALS: BP 136/92; PULSE 64; TEMP 97.3
[2020-09-08] MEDS ORDERED: chlordiazePOXIDE HCL 10 MG CAPSULE PO ONE (05:00)
== END 2020-09-07 08:45 | disposition home or self-care (01) | DRG 774 ==
LOC: YASAS 11:27 → Y6N 13:08
PROVIDERS: ADMIT Allergy & Immunology; ATTEND Allergy & Immunology
PROC: HZ2ZZZZ Detoxification Services for Substance Abuse Treatment (ICD-10-PCS; principal; 2020-09-03)
DX: F10.230 Alcohol dependence with withdrawal, uncomplicated (principal); F14.20 Cocaine dependence, uncomplicated; F16.10 Hallucinogen abuse, uncomplicated; F12.20 Cannabis dependence, uncomplicated; F19.282 Other psychoactive substance dependence with psychoactive substance-induced sleep disorder; F19.24 Other psychoactive substance dependence with psychoactive substance-induced mood disorder; F31.9 Bipolar disorder, unspecified; F34.1 Dysthymic disorder; F43.10 Post-traumatic stress disorder, unspecified; I10 Essential (primary) hypertension; H91.91 Unspecified hearing loss, right ear; Z62.810 Personal history of physical and sexual abuse in childhood; Z98.42 Cataract extraction status, left eye; R76.11 Nonspecific reaction to tuberculin skin test without active tuberculosis
CPT/HCPCS: 36415; 80053; 85027; 86780; 87389; C9803; G0008; Q2036; U0003

== ENCOUNTER 2020-12-28 13:02 | Inpatient (IN) | payer OTHER ==
[2020-12-28 19:30] VITALS: BMI 32.9
[2020-12-28] MEDS ORDERED: MAGNESIUM HYDROX 2400MG/30ML ORAL SUSPENSION 30 ML CUP PO PRN (19:45)
[2020-12-28] MEDS ORDERED: BISMUTH SUBSALICYLATE 524 MG/30 ML UD PO PRN (19:45)
[2020-12-28] MEDS ORDERED: hydrOXYzine PAMOATE 25 MG CAPSULE (FP) PO PRN (19:45)
[2020-12-28] MEDS ORDERED: MAGNESIUM CITRATE 300 ML BOTTLE PO PRN (19:45)
[2020-12-28] MEDS ORDERED: METHOCARBAMOL 500 MG TABLET PO PRN (19:45)
[2020-12-28] MEDS ORDERED: IBUPROFEN 400 MG TABLET (FP) PO PRN (19:45)
[2020-12-28] MEDS ORDERED: ONDANSETRON *ODT* 4 MG TABLET SL PRN (19:45)
[2020-12-28] MEDS ORDERED: MENTHOL/PHENOL 1 EACH UD MM PRN (19:45)
[2020-12-28] MEDS ORDERED: ACETAMINOPHEN 325 MG TABLET (FP) PO PRN ×2 (19:45)
[2020-12-28] MEDS ORDERED: MAG HYDROX/AL HYDROX/SIMETH 30 ML UNIT-DOSE CUP PO PRN (19:45)
[2020-12-28] MEDS ORDERED: diazePAM 5 MG TABLET PO PRN (19:48)
[2020-12-28] MEDS ORDERED: amLODIPine BESYLATE 10 MG TABLET (FP) PO ONE (21:24)
[2020-12-28] MEDS: diazePAM 5 MG TABLET PO SCH (22:52)
[2020-12-28] MEDS: THIAMINE HCL 100 MG TABLET (FP) PO SCH (22:53)
[2020-12-28] MEDS: MELATONIN 5 MG TABLETS PO SCH (22:53)
[2020-12-29] MEDS: diazePAM 5 MG TABLET PO SCH ×4 (06:45→22:28)
[2020-12-29] MEDS ORDERED: SUVOREXANT 10 MG TABLET PO PRN (10:07)
[2020-12-29 10:29] LABS: HEMATOCRIT 41.9 % (35.4-49); MCH 28.5 pg (25.7-33.7); MCHC 33.4 g/dl (32.0-35.9); MEAN CELL VOLUME 85.3 fl (80-96); MEAN PLT VOLUME 9.9 fl (7.5-11.1); PLATELET COUNT 224 K/MM3 (134-434); RBC 4.91 M/mm3 (4.00-5.60); RDW 14.6 % (11.9-15.9); WHITE BLOOD COUNT 5.9 K/mm3 (4.0-10.0)
[2020-12-29] MEDS: amLODIPine BESYLATE 5 MG TABLET (FP) PO SCH (10:47)
[2020-12-29] MEDS: PRENATAL VITAMINS W/ FOLIC ACID TABLET (FP) PO SCH (10:47)
[2020-12-29 11:15] LABS: ALBUMIN 4.1 g/dl (3.4-5.0); BLOOD UREA NITROGEN 12.1 mg/dL (7-18); CALCIUM 9.3 mg/dL (8.5-10.1)
[2020-12-29 11:17] LABS: BILIRUBIN,TOTAL 0.5 mg/dL (0.2-1); TOT PROT 7.4 g/dl (6.4-8.2)
[2020-12-29 11:18] LABS: CREATININE 1.1 mg/dL (0.55-1.3)
[2020-12-29] MEDS: MELATONIN 5 MG TABLETS PO SCH (22:28)
[2020-12-29] MEDS: THIAMINE HCL 100 MG TABLET (FP) PO SCH (22:28)
[2020-12-30] MEDS ORDERED: diazePAM 5 MG TABLET PO ONE (06:00)
[2020-12-30 09:21] VITALS: BP 151/65; PULSE 66; TEMP 98
[2020-12-30] MEDS ORDERED: HYDROCHLOROTHIAZIDE 12.5 MG CAPSULE (FP) PO SCH (10:00)
[2020-12-30] MEDS ORDERED: MASKS NR ONE (10:37)
[2020-12-30] MEDS: PRENATAL VITAMINS W/ FOLIC ACID TABLET (FP) PO SCH (10:38)
[2020-12-30] MEDS: amLODIPine BESYLATE 5 MG TABLET (FP) PO SCH (10:38)
== END 2020-12-30 13:40 | disposition other institution (70) | DRG 775 ==
LOC: YASAS 13:02 → Y3N 20:20
PROVIDERS: ADMIT Allergy & Immunology; ATTEND Allergy & Immunology
PROC: HZ2ZZZZ Detoxification Services for Substance Abuse Treatment (ICD-10-PCS; principal; 2020-12-28)
DX: F10.230 Alcohol dependence with withdrawal, uncomplicated (principal); F12.20 Cannabis dependence, uncomplicated; F19.280 Other psychoactive substance dependence with psychoactive substance-induced anxiety disorder; F19.282 Other psychoactive substance dependence with psychoactive substance-induced sleep disorder; F19.24 Other psychoactive substance dependence with psychoactive substance-induced mood disorder; F31.9 Bipolar disorder, unspecified; F34.1 Dysthymic disorder; F43.10 Post-traumatic stress disorder, unspecified; H91.91 Unspecified hearing loss, right ear; H40.9 Unspecified glaucoma; I10 Essential (primary) hypertension
CPT/HCPCS: 36415; 80053; 85027; 86780; C9803; U0003

== ENCOUNTER 2020-12-30 11:52 | Inpatient (IN) | payer OTHER ==
[2020-12-30] MEDS ORDERED: PNEUMOC 13-VAL CONJ-DIP CRM/PF 0.5 ML DISP.SYRIN IM ONE (14:05)
[2020-12-30 14:24] VITALS: BP 153/74; PULSE 80; TEMP 98.1
[2020-12-30] MEDS ORDERED: P-EPHED 60MG/TRIPROLIDI 2.5MG TABLET PO PRN (14:38)
[2020-12-30] MEDS ORDERED: guaiFENesin 200 MG/10 ML 10 ML UNIT-DOSE CUPS PO PRN (14:38)
[2020-12-30] MEDS ORDERED: ACETAMINOPHEN 325 MG TABLET (FP) PO PRN (14:38)
[2020-12-30] MEDS ORDERED: MAGNESIUM CITRATE 300 ML BOTTLE PO PRN (14:38)
[2020-12-30] MEDS ORDERED: MAG HYDROX/AL HYDROX/SIMETH 30 ML UNIT-DOSE CUP PO PRN (14:38)
[2020-12-30] MEDS ORDERED: MAGNESIUM HYDROX 2400MG/30ML ORAL SUSPENSION 30 ML CUP PO PRN (14:38)
[2020-12-30] MEDS ORDERED: IBUPROFEN 400 MG TABLET (FP) PO PRN (14:38)
[2020-12-30] MEDS ORDERED: MENTHOL/PHENOL 1 EACH UD MM PRN (14:38)
[2020-12-30] MEDS ORDERED: hydrOXYzine PAMOATE 25 MG CAPSULE (FP) PO PRN (14:38)
[2020-12-30] MEDS ORDERED: LOPERAMIDE HCL 2 MG CAPSULE PO PRN (14:38)
[2020-12-30] MEDS ORDERED: METHOCARBAMOL 500 MG TABLET PO PRN (14:48)
[2020-12-30] MEDS ORDERED: METHOCARBAMOL 500 MG TABLET PO SCH (18:00)
[2020-12-30] MEDS ORDERED: MELATONIN 5 MG TABLETS PO SCH (22:00)
[2020-12-30] MEDS ORDERED: SUVOREXANT 10 MG TABLET PO PRN (22:00)
[2020-12-30] MEDS ORDERED: THIAMINE HCL 100 MG TABLET (FP) PO SCH (22:00)
[2020-12-31] MEDS ORDERED: HYDROCHLOROTHIAZIDE 12.5 MG CAPSULE (FP) PO SCH (10:00)
[2020-12-31] MEDS ORDERED: PRENATAL VITAMINS W/ FOLIC ACID TABLET (FP) PO SCH (10:00)
[2020-12-31] MEDS ORDERED: amLODIPine BESYLATE 5 MG TABLET (FP) PO SCH (10:00)
[2020-12-31] MEDS ORDERED: PNEUMOCOCCAL 23 VACCINE 0.5 ML VIAL IM ONE (12:00)
== END 2020-12-30 16:15 | disposition left against medical advice (07) | DRG 770 ==
LOC: YASAS 11:52 → Y3W 13:47
PROVIDERS: ADMIT Allergy & Immunology; ATTEND Allergy & Immunology
PROC: HZ42ZZZ Group Counseling for Substance Abuse Treatment, Cognitive-Behavioral (ICD-10-PCS; principal; 2020-12-30)
DX: F10.20 Alcohol dependence, uncomplicated (principal); F14.20 Cocaine dependence, uncomplicated; F12.20 Cannabis dependence, uncomplicated; F41.9 Anxiety disorder, unspecified; F32.9 Major depressive disorder, single episode, unspecified; I10 Essential (primary) hypertension

== ENCOUNTER 2021-03-18 12:36 | Inpatient (IN) | payer OTHER ==
[2021-03-18 14:23] VITALS: BMI 32.1
[2021-03-18] MEDS ORDERED: LORazepam 1 MG TABLET PO PRN (16:37)
[2021-03-18] MEDS ORDERED: MAGNESIUM HYDROX 2400MG/30ML ORAL SUSPENSION 30 ML CUP PO PRN (16:37)
[2021-03-18] MEDS ORDERED: ACETAMINOPHEN 325 MG TABLET (FP) PO PRN ×2 (16:37)
[2021-03-18] MEDS ORDERED: MENTHOL/PHENOL 1 EACH UD MM PRN (16:37)
[2021-03-18] MEDS ORDERED: ONDANSETRON *ODT* 4 MG TABLET SL PRN (16:37)
[2021-03-18] MEDS ORDERED: BISMUTH SUBSALICYLATE 524 MG/30 ML PO PRN (16:37)
[2021-03-18] MEDS ORDERED: MAGNESIUM CITRATE 300 ML BOTTLE PO PRN (16:37)
[2021-03-18] MEDS ORDERED: hydrOXYzine PAMOATE 25 MG CAPSULE (FP) PO PRN (16:37)
[2021-03-18] MEDS ORDERED: METHOCARBAMOL 500 MG TABLET PO PRN (16:37)
[2021-03-18] MEDS ORDERED: IBUPROFEN 400 MG TABLET (FP) PO PRN (16:37)
[2021-03-18] MEDS ORDERED: MAG HYDROX/AL HYDROX/SIMETH 30 ML UNIT-DOSE CUP PO PRN (16:37)
[2021-03-18] MEDS: LORazepam 2 MG TABLET PO SCH ×2 (18:05→23:03)
[2021-03-18] MEDS: THIAMINE HCL 100 MG TABLET (FP) PO SCH (23:03)
[2021-03-18] MEDS: CLOTRIMAZOLE 1% CREAM 15 GM TUBE TP SCH (23:03)
[2021-03-18] MEDS: MELATONIN 5 MG TABLETS PO SCH (23:03)
[2021-03-19] MEDS: LORazepam 2 MG TABLET PO SCH ×4 (06:20→22:43)
[2021-03-19 10:25] LABS: HEMATOCRIT 39.5 % (35.4-49); HEMOGLOBIN 13.2 GM/dL (11.7-16.9); MCH 28.7 pg (25.7-33.7); MCHC 33.4 g/dl (32.0-35.9); MEAN PLT VOLUME 10.4 fl (7.5-11.1); PLATELET COUNT 166 K/MM3 (134-434); RBC 4.59 M/mm3 (4.00-5.60); RDW 14.4 % (11.9-15.9); WHITE BLOOD COUNT 4.8 K/mm3 (4.0-10.0)
[2021-03-19 10:32] LABS: CALCIUM 8.2 mg/dL (8.5-10.1)
[2021-03-19 10:33] LABS: ALBUMIN 3.5 g/dl (3.4-5.0); BLOOD UREA NITROGEN 13.6 mg/dL (7-18)
[2021-03-19 10:37] LABS: BILIRUBIN,TOTAL 0.7 mg/dL (0.2-1)
[2021-03-19] MEDS: amLODIPine BESYLATE 5 MG TABLET (FP) PO SCH (10:57)
[2021-03-19] MEDS: PRENATAL VITAMINS W/ FOLIC ACID TABLET (FP) PO SCH (10:57)
[2021-03-19] MEDS: HYDROCHLOROTHIAZIDE 25 MG TABLET (FP) PO SCH (10:57)
[2021-03-19] MEDS: CLOTRIMAZOLE 1% CREAM 15 GM TUBE TP SCH ×2 (10:58→22:43)
[2021-03-19 11:13] LABS: HIV INTERPRETATION NEGATIVE (NEGATIVE)
[2021-03-19] MEDS: THIAMINE HCL 100 MG TABLET (FP) PO SCH (22:42)
[2021-03-19] MEDS: MIRTAZAPINE 15 MG TABLET (FP) PO SCH (22:42)
[2021-03-19] MEDS: MELATONIN 5 MG TABLETS PO SCH (22:43)
[2021-03-20] MEDS: LORazepam 1 MG TABLET PO SCH ×4 (06:20→22:38)
[2021-03-20] MEDS: amLODIPine BESYLATE 5 MG TABLET (FP) PO SCH (10:34)
[2021-03-20] MEDS: HYDROCHLOROTHIAZIDE 25 MG TABLET (FP) PO SCH (10:34)
[2021-03-20] MEDS: PRENATAL VITAMINS W/ FOLIC ACID TABLET (FP) PO SCH (10:34)
[2021-03-20] MEDS: CLOTRIMAZOLE 1% CREAM 15 GM TUBE TP SCH ×2 (13:04→14:28)
[2021-03-20] MEDS: LISINOPRIL 10 MG TABLET PO SCH ×2 (14:23→22:38)
[2021-03-20 18:00] VITALS: TEMP 97.8
[2021-03-20] MEDS: THIAMINE HCL 100 MG TABLET (FP) PO SCH (22:38)
[2021-03-20] MEDS: MIRTAZAPINE 15 MG TABLET (FP) PO SCH (22:38)
[2021-03-20] MEDS: MELATONIN 5 MG TABLETS PO SCH (22:38)
[2021-03-21] MEDS ORDERED: LORazepam 0.5 MG TABLET PO PRN
[2021-03-21] MEDS: LORazepam 0.5 MG TABLET PO SCH ×2 (07:07→10:55)
[2021-03-21 08:44] VITALS: BP 117/85; PULSE 87
[2021-03-21 10:11] LABS: SARS-CoV-2 NAA Not Detected (Not Detected)
[2021-03-21] MEDS: LISINOPRIL 10 MG TABLET PO SCH (10:55)
[2021-03-21] MEDS: amLODIPine BESYLATE 5 MG TABLET (FP) PO SCH (10:55)
[2021-03-21] MEDS: PRENATAL VITAMINS W/ FOLIC ACID TABLET (FP) PO SCH (10:55)
[2021-03-21] MEDS: CLOTRIMAZOLE 1% CREAM 15 GM TUBE TP SCH (10:55)
[2021-03-21] MEDS: HYDROCHLOROTHIAZIDE 25 MG TABLET (FP) PO SCH (10:55)
[2021-03-22] MEDS ORDERED: LORazepam 0.5 MG TABLET PO ONE (05:00)
== END 2021-03-21 11:13 | disposition left against medical advice (07) | DRG 774 ==
LOC: YASAS 12:36 → Y3N 15:25 → Y6N 03-20 01:40
PROVIDERS: ADMIT Allergy & Immunology; ATTEND Allergy & Immunology
PROC: HZ2ZZZZ Detoxification Services for Substance Abuse Treatment (ICD-10-PCS; principal; 2021-03-18)
DX: F10.230 Alcohol dependence with withdrawal, uncomplicated (principal); F14.20 Cocaine dependence, uncomplicated; F16.10 Hallucinogen abuse, uncomplicated; F12.20 Cannabis dependence, uncomplicated; F19.24 Other psychoactive substance dependence with psychoactive substance-induced mood disorder; F32.9 Major depressive disorder, single episode, unspecified; F43.10 Post-traumatic stress disorder, unspecified; I10 Essential (primary) hypertension; H91.91 Unspecified hearing loss, right ear; H40.9 Unspecified glaucoma; G47.00 Insomnia, unspecified; R74.01 Elevation of levels of liver transaminase levels; Z62.810 Personal history of physical and sexual abuse in childhood; E66.9 Obesity, unspecified; Z68.32 Body mass index [BMI] 32.0-32.9, adult
CPT/HCPCS: 36415; 80053; 85027; 86780; 87389; C9803; U0003; U0005

== ENCOUNTER 2021-08-17 13:18 | Inpatient (IN) | payer OTHER ==
[2021-08-17] MEDS ORDERED: MAGNESIUM CITRATE 300 ML BOTTLE PO PRN (15:48)
[2021-08-17] MEDS ORDERED: NICOTINE 10 MG CARTRIDGE (INHALER) IH PRN (15:48)
[2021-08-17] MEDS ORDERED: guaiFENesin 200 MG/10 ML 10 ML UNIT-DOSE CUPS PO PRN (15:48)
[2021-08-17] MEDS ORDERED: MAG HYDROX/AL HYDROX/SIMETH 30 ML UNIT-DOSE CUP PO PRN (15:48)
[2021-08-17] MEDS ORDERED: IBUPROFEN 400 MG TABLET (FP) PO PRN (15:48)
[2021-08-17] MEDS ORDERED: P-EPHED 60MG/TRIPROLIDI 2.5MG TABLET PO PRN (15:48)
[2021-08-17] MEDS ORDERED: MAGNESIUM HYDROX 2400MG/30ML ORAL SUSPENSION 30 ML CUP PO PRN (15:48)
[2021-08-17] MEDS ORDERED: ACETAMINOPHEN 325 MG TABLET (FP) PO PRN (15:48)
[2021-08-17] MEDS ORDERED: diazePAM 5 MG TABLET PO PRN (15:48)
[2021-08-17] MEDS ORDERED: LOPERAMIDE HCL 2 MG CAPSULE PO PRN (15:48)
[2021-08-17 15:58] VITALS: BMI 31.8
[2021-08-17] MEDS: hydrOXYzine PAMOATE 25 MG CAPSULE (FP) PO SCH ×2 (18:03→22:55)
[2021-08-17] MEDS: diazePAM 5 MG TABLET PO SCH ×2 (18:14→22:55)
[2021-08-17] MEDS: MELATONIN 5 MG TABLETS PO SCH (22:55)
[2021-08-17] MEDS: THIAMINE HCL 100 MG TABLET (FP) PO SCH (22:55)
[2021-08-17] MEDS: LISINOPRIL 10 MG TABLET PO SCH (22:55)
[2021-08-18] MEDS: diazePAM 5 MG TABLET PO SCH ×4 (05:31→22:09)
[2021-08-18] MEDS: hydrOXYzine PAMOATE 25 MG CAPSULE (FP) PO SCH ×5 (05:31→22:08)
[2021-08-18] MEDS ORDERED: NICOTINE 7 MG/24 HOURS TOPICAL PATCH TD SCH (10:00)
[2021-08-18] MEDS: PRENATAL VITAMINS W/ FOLIC ACID TABLET (FP) PO SCH (10:19)
[2021-08-18] MEDS: amLODIPine BESYLATE 5 MG TABLET (FP) PO SCH (10:21)
[2021-08-18] MEDS: HYDROCHLOROTHIAZIDE 25 MG TABLET (FP) PO SCH (10:21)
[2021-08-18] MEDS: LISINOPRIL 10 MG TABLET PO SCH ×2 (10:21→22:08)
[2021-08-18] MEDS ORDERED: FLU VACC QS2021-22(6MOS UP)/PF 60 MCG/0.5 ML SYRINGE IM ONE (12:00)
[2021-08-18 12:17] LABS: ALBUMIN 3.1 g/dl (3.4-5.0); BLOOD UREA NITROGEN 15.8 mg/dL (7-18); CALCIUM 8.4 mg/dL (8.5-10.1)
[2021-08-18 12:20] LABS: CREATININE 1.1 mg/dL (0.55-1.3)
[2021-08-18 12:21] LABS: HEMATOCRIT 38.5 % (35.4-49); HEMOGLOBIN 12.8 GM/dL (11.7-16.9); MCH 28.4 pg (25.7-33.7); MCHC 33.2 g/dl (32.0-35.9); MEAN CELL VOLUME 85.5 fl (80-96); MEAN PLT VOLUME 9.4 fl (7.5-11.1); PLATELET COUNT 186 10^3/uL (134-434); RDW 14.1 % (11.9-15.9); WHITE BLOOD COUNT 3.8 K/mm3 (4.0-10.0)
[2021-08-18 12:22] LABS: BILIRUBIN,TOTAL 0.5 mg/dL (0.2-1); TOT PROT 5.9 g/dl (6.4-8.2)
[2021-08-18 12:41] LABS: SYPHILIS W/ RPR CONF NON-REACTIVE (NONREACTIVE)
[2021-08-18 14:53] LABS: URINE APPEARANCE CLEAR; URINE BILIRUBIN NEGATIVE (NEGATIVE); URINE COLOR YELLOW; URINE GLUCOSE (UA) NEGATIVE (NEGATIVE); URINE KETONE NEGATIVE (NEGATIVE); URINE LEUK ESTERASE NEGATIVE (NEGATIVE); URINE NITRITE NEGATIVE (NEGATIVE); URINE PROTEIN NEGATIVE (NEGATIVE); URINE UROBILINOGEN 0.2 mg/dL (0.2-1.0)
[2021-08-18 15:03] LABS: HIV INTERPRETATION NEGATIVE (NEGATIVE)
[2021-08-18] MEDS: THIAMINE HCL 100 MG TABLET (FP) PO SCH (22:08)
[2021-08-18] MEDS: MELATONIN 5 MG TABLETS PO SCH (22:08)
[2021-08-19] MEDS: diazePAM 5 MG TABLET PO SCH ×3 (05:08→22:11)
[2021-08-19] MEDS: hydrOXYzine PAMOATE 25 MG CAPSULE (FP) PO SCH ×5 (05:08→22:11)
[2021-08-19] MEDS: amLODIPine BESYLATE 5 MG TABLET (FP) PO SCH (10:21)
[2021-08-19] MEDS: LISINOPRIL 10 MG TABLET PO SCH ×2 (10:22→22:12)
[2021-08-19] MEDS: PRENATAL VITAMINS W/ FOLIC ACID TABLET (FP) PO SCH (10:22)
[2021-08-19] MEDS: HYDROCHLOROTHIAZIDE 25 MG TABLET (FP) PO SCH (10:25)
[2021-08-19] MEDS: THIAMINE HCL 100 MG TABLET (FP) PO SCH (22:11)
[2021-08-19] MEDS: MELATONIN 5 MG TABLETS PO SCH (22:12)
[2021-08-20] MEDS: diazePAM 5 MG TABLET PO SCH ×2 (05:22→18:02)
[2021-08-20] MEDS: hydrOXYzine PAMOATE 25 MG CAPSULE (FP) PO SCH ×5 (05:22→22:14)
[2021-08-20] MEDS: amLODIPine BESYLATE 5 MG TABLET (FP) PO SCH (10:14)
[2021-08-20] MEDS: LISINOPRIL 10 MG TABLET PO SCH ×2 (10:14→22:14)
[2021-08-20] MEDS: HYDROCHLOROTHIAZIDE 25 MG TABLET (FP) PO SCH (10:14)
[2021-08-20] MEDS: PRENATAL VITAMINS W/ FOLIC ACID TABLET (FP) PO SCH (10:15)
[2021-08-20] MEDS: THIAMINE HCL 100 MG TABLET (FP) PO SCH (22:14)
[2021-08-20] MEDS: MELATONIN 5 MG TABLETS PO SCH (22:14)
[2021-08-21] MEDS: hydrOXYzine PAMOATE 25 MG CAPSULE (FP) PO SCH ×2 (05:27→10:08)
[2021-08-21] MEDS ORDERED: diazePAM 5 MG TABLET PO ONE (06:00)
[2021-08-21] MEDS: HYDROCHLOROTHIAZIDE 25 MG TABLET (FP) PO SCH (10:04)
[2021-08-21] MEDS: PRENATAL VITAMINS W/ FOLIC ACID TABLET (FP) PO SCH (10:04)
[2021-08-21] MEDS: LISINOPRIL 10 MG TABLET PO SCH (10:05)
[2021-08-21] MEDS: amLODIPine BESYLATE 5 MG TABLET (FP) PO SCH (10:05)
[2021-08-21 10:06] VITALS: BP 117/77; PULSE 72; TEMP 97.1
== END 2021-08-21 10:49 | disposition home or self-care (01) | DRG 774 ==
LOC: YASAS 13:18 → Y3N 16:30
PROVIDERS: ADMIT Allergy & Immunology; ATTEND Allergy & Immunology
PROC: HZ2ZZZZ Detoxification Services for Substance Abuse Treatment (ICD-10-PCS; principal; 2021-08-17)
DX: F10.230 Alcohol dependence with withdrawal, uncomplicated (principal); F14.20 Cocaine dependence, uncomplicated; F16.20 Hallucinogen dependence, uncomplicated; F12.20 Cannabis dependence, uncomplicated; I10 Essential (primary) hypertension; H91.91 Unspecified hearing loss, right ear; Z86.19 Personal history of other infectious and parasitic diseases
CPT/HCPCS: 36415; 71046-TC-FY; 80053; 81003; 85027; 86780; 86803; 87389; 90686; C9803; G0008; U0003; U0005

== ENCOUNTER 2023-03-07 13:23 | Inpatient (IN) | payer OTHER ==
[2023-03-07 14:26] VITALS: BMI 31.5
[2023-03-07] MEDS ORDERED: NALOXONE HCL 0.4 MG/ML VIAL IM PRN (16:53)
[2023-03-07] MEDS ORDERED: diazePAM 5 MG TABLET PO PRN (16:53)
[2023-03-07] MEDS ORDERED: hydrOXYzine PAMOATE 25 MG CAPSULE (FP) PO PRN (16:53)
[2023-03-07] MEDS ORDERED: NALOXONE HCL (KLOXXADO) 8 MG SPRAY NS PRN (16:53)
[2023-03-07] MEDS ORDERED: POLYETHYLENE GLYCOL (HEALTHYLAX) 3350 17 GM PACKET PO PRN (16:53)
[2023-03-07] MEDS ORDERED: IBUPROFEN 400 MG TABLET (FP) PO PRN (16:53)
[2023-03-07] MEDS ORDERED: NICOTINE 10 MG CARTRIDGE (INHALER) IH PRN (16:53)
[2023-03-07] MEDS ORDERED: DICYCLOMINE HCL 10 MG CAPSULE PO PRN (16:53)
[2023-03-07] MEDS ORDERED: MAG HYDROX/AL HYDROX/SIMETH 30 ML UNIT-DOSE CUP PO PRN (16:53)
[2023-03-07] MEDS ORDERED: MAGNESIUM HYDROX 2400MG/30ML ORAL SUSPENSION 30 ML CUP PO PRN (16:53)
[2023-03-07] MEDS ORDERED: BENZONATATE 200 MG CAPSULE PO PRN (16:53)
[2023-03-07] MEDS ORDERED: LOPERAMIDE HCL 2 MG CAPSULE PO PRN (16:53)
[2023-03-07] MEDS ORDERED: BISMUTH SUBSALICYLATE 524 MG/30 ML PO PRN (16:53)
[2023-03-07] MEDS ORDERED: BENZOCAINE/MENTHOL (CHLORASEPTIC ) LOZENGE MM PRN (16:53)
[2023-03-07] MEDS ORDERED: ACETAMINOPHEN 325 MG TABLET (FP) PO PRN (16:53)
[2023-03-07] MEDS ORDERED: ONDANSETRON *ODT* 4 MG TABLET SL PRN (16:53)
[2023-03-07] MEDS ORDERED: guaiFENesin 600 MG TABLET.ER (FP) PO PRN (16:53)
[2023-03-07] MEDS ORDERED: diazePAM 5 MG TABLET PO SCH (17:00)
[2023-03-07] MEDS: diazePAM 5 MG TABLET PO SCH ×2 (18:16→23:29)
[2023-03-07] MEDS: THIAMINE HCL 100 MG TABLET (FP) PO SCH (22:27)
[2023-03-07] MEDS: MELATONIN 5 MG TABLETS PO SCH (22:27)
[2023-03-08] MEDS: diazePAM 5 MG TABLET PO SCH ×4 (06:57→23:17)
[2023-03-08] MEDS ORDERED: LOSARTAN PO SCH (10:00)
[2023-03-08] MEDS ORDERED: HYDROCHLOROTHIAZIDE PO SCH (10:00)
[2023-03-08] MEDS: HYDROCHLOROTHIAZIDE 25 MG TABLET (FP) PO SCH (10:34)
[2023-03-08] MEDS: PRENATAL VITAMINS W/ FOLIC ACID TABLET (FP) PO SCH (10:34)
[2023-03-08] MEDS: LOSARTAN POTASSIUM 50 MG TABLET PO SCH (10:34)
[2023-03-08] MEDS: amLODIPine BESYLATE 10 MG TABLET (FP) PO SCH (10:34)
[2023-03-08] MEDS: IBUPROFEN 600 MG TABLET (FP) PO PRN ×2 (10:36→17:34)
[2023-03-08 18:17] LABS: HEMATOCRIT 36.9 % (35.4-49); MCH 27.3 pg (25.7-33.7); MCHC 32.5 g/dl (32.0-35.9); MEAN CELL VOLUME 83.9 fl (80-96); MEAN PLT VOLUME 9.5 fl (7.5-11.1); PLATELET COUNT 198 10^3/uL (134-434); RDW 14.2 % (11.9-15.9); WHITE BLOOD COUNT 6.4 K/mm3 (4.0-10.0)
[2023-03-08 18:30] LABS: POTASSIUM 3.7 mmol/L (3.5-5.1)
[2023-03-08 18:35] LABS: CALCIUM 9.1 mg/dL (8.5-10.1)
[2023-03-08 18:36] LABS: ALBUMIN 3.5 g/dl (3.4-5.0); BLOOD UREA NITROGEN 18.4 mg/dL (7-18)
[2023-03-08 18:40] LABS: TOT PROT 6.6 g/dl (6.4-8.2)
[2023-03-08] MEDS: MELATONIN 5 MG TABLETS PO SCH (22:08)
[2023-03-08] MEDS: THIAMINE HCL 100 MG TABLET (FP) PO SCH (22:08)
[2023-03-09] MEDS: diazePAM 5 MG TABLET PO SCH ×3 (06:22→22:44)
[2023-03-09] MEDS: METHOCARBAMOL 500 MG TABLET PO PRN (06:23)
[2023-03-09] MEDS: amLODIPine BESYLATE 10 MG TABLET (FP) PO SCH (09:52)
[2023-03-09] MEDS: HYDROCHLOROTHIAZIDE 25 MG TABLET (FP) PO SCH (09:52)
[2023-03-09] MEDS: PRENATAL VITAMINS W/ FOLIC ACID TABLET (FP) PO SCH (09:52)
[2023-03-09] MEDS: LOSARTAN POTASSIUM 50 MG TABLET PO SCH (09:52)
[2023-03-09] MEDS: MELATONIN 5 MG TABLETS PO SCH (22:43)
[2023-03-09] MEDS: THIAMINE HCL 100 MG TABLET (FP) PO SCH (22:43)
[2023-03-10] MEDS: diazePAM 5 MG TABLET PO SCH ×2 (06:11→17:55)
[2023-03-10] MEDS: HYDROCHLOROTHIAZIDE 25 MG TABLET (FP) PO SCH (10:14)
[2023-03-10] MEDS: amLODIPine BESYLATE 10 MG TABLET (FP) PO SCH (10:14)
[2023-03-10] MEDS: LOSARTAN POTASSIUM 50 MG TABLET PO SCH (10:14)
[2023-03-10] MEDS: PRENATAL VITAMINS W/ FOLIC ACID TABLET (FP) PO SCH (10:14)
[2023-03-10] MEDS: IBUPROFEN 600 MG TABLET (FP) PO PRN (10:15)
[2023-03-10] MEDS: THIAMINE HCL 100 MG TABLET (FP) PO SCH (22:47)
[2023-03-10] MEDS: MELATONIN 5 MG TABLETS PO SCH (22:47)
[2023-03-10] MEDS: METHOCARBAMOL 500 MG TABLET PO PRN (23:21)
[2023-03-11] MEDS ORDERED: diazePAM 5 MG TABLET PO ONE (06:00)
[2023-03-11 09:14] VITALS: BP 160/88
[2023-03-11] MEDS: PRENATAL VITAMINS W/ FOLIC ACID TABLET (FP) PO SCH (10:40)
[2023-03-11] MEDS: HYDROCHLOROTHIAZIDE 25 MG TABLET (FP) PO SCH (10:40)
[2023-03-11] MEDS: amLODIPine BESYLATE 10 MG TABLET (FP) PO SCH (10:40)
[2023-03-11] MEDS: LOSARTAN POTASSIUM 50 MG TABLET PO SCH (10:40)
[2023-03-11] MEDS: IBUPROFEN 600 MG TABLET (FP) PO PRN (10:41)
[2023-03-11 12:53] VITALS: PULSE 85; RESP 19; TEMP 98.4
== END 2023-03-11 13:11 | disposition home or self-care (01) | DRG 774 ==
LOC: YASAS 13:23 → Y3N 17:25
PROVIDERS: ADMIT Allergy & Immunology; ATTEND Surgery
PROC: HZ2ZZZZ Detoxification Services for Substance Abuse Treatment (ICD-10-PCS; principal; 2023-03-07)
DX: F10.230 Alcohol dependence with withdrawal, uncomplicated (principal); F14.20 Cocaine dependence, uncomplicated; F12.20 Cannabis dependence, uncomplicated; F17.210 Nicotine dependence, cigarettes, uncomplicated; F41.9 Anxiety disorder, unspecified; F32.A Depression, unspecified; I10 Essential (primary) hypertension; S79.922D Unspecified injury of left thigh, subsequent encounter; X58.XXXD Exposure to other specified factors, subsequent encounter; Z99.89 Dependence on other enabling machines and devices; Z86.11 Personal history of tuberculosis
CPT/HCPCS: 36415; 71046-TC-FY; 80053; 83036; 85027; 86780; 87811; C9803-CS; U0003; U0005